=== PATIENT | male | born 1950 | race Caucasian/White ===

== ENCOUNTER 2016-12-28 17:53 | Inpatient (IN) | payer MEDICARE ==
[~2016-12-28] VITALS: Ht 172.7 cm; Wt 125.0 kg
[~2016-12-28 17:53] MED LIST: ASPI81TA11 OR; DOXY150C OR; HYDR-2768 PO; LISI-360 PO; METF500 PO; METO50TA PO; ROSU40 PO
[2016-12-28 18:00] VITALS: BP 128/63; PULSE 94; RESP 16; TEMP 99.9; O2SAT 98
[2016-12-28 18:27] VITALS: RESP 16; O2SAT 98
[2016-12-28] MEDS ORDERED: SODIUM CHLORIDE 0.9% FLUSH 5 ML FLUSH IVF PRN (18:30)
[2016-12-28] MEDS ORDERED: SODIUM CHLOR 0.9% 1000 ML INJ 1,000 ML IV ONE (18:30)
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
[2016-12-28] MEDS ORDERED: ROSU5 PO (18:39)
[2016-12-28] MEDS ORDERED: HYDR25TA5 PO (18:39)
[2016-12-28] MEDS ORDERED: METF1000 PO (18:39)
[2016-12-28] MEDS ORDERED: METO50TA PO (18:39)
[2016-12-28] MEDS ORDERED: DOXY100C PO (18:39)
[2016-12-28] MEDS ORDERED: ASPI325T PO (18:39)
[2016-12-28] MEDS ORDERED: VANCOMYCIN INJ 1,750 MG in SODIUM CHLORID 0.9% 500 ML INJ 500 ML IV STA (18:47)
[2016-12-28] MEDS ORDERED: CEFEPIME INJ 2,000 MG in SODIUM CHLORIDE 0.9% INJ 100 ML IV STA (18:47)
[2016-12-28 18:55] LABS: AUTOMATED NEUTROPHIL # 10.4 TH/MM3 (1.8-7.7); BASOPHIL # 0.1 TH/MM3 (0-0.2); BASOPHIL % 0.7 % (0.0-2.0); HEMATOCRIT 47.5 % (39.0-51.0); HEMO FLAGS DIFF FINAL; LYMPH % 11.5 % (9.0-44.0); LYMPHOCYTE # 1.5 TH/MM3 (1.0-4.8); MEAN CELL VOLUME 81.6 FL (80.0-100.0); MEAN CORPUSCULAR HEMOGLOBIN 26.8 PG (27.0-34.0); MEAN CORPUSCULAR HGB CONC 32.8 % (32.0-36.0); MONO % 7.6 % (0.0-8.0); NEUT % 80.2 % (16.0-70.0); PLATELET COUNT 256 TH/MM3 (150-450); RED BLOOD COUNT 5.82 MIL/MM3 (4.50-5.90); RED CELL DISTRIBUTION WIDTH 15.3 % (11.6-17.2); WHITE BLOOD COUNT 12.9 TH/MM3 (4.0-11.0)
[2016-12-28 19:00] VITALS: BP 109/58; PULSE 107; RESP 18; TEMP 100.5; O2SAT 97
[2016-12-28 19:04] LABS: APTT (PATIENT) 29.6 SEC (24.3-30.1); INTERNATIONAL NORMALIZED RATIO 1.1 RATIO; PROTHROMBIN TIME - PATIENT 12.2 SEC (9.8-11.6)
--- NOTE | 2016-12-28 19:20 | RADRPT ---
EXAM DATE/TIME: 12/28/2016 18:54 [facility] COMPARISON: No previous studies available for comparison. INDICATIONS : Fever, shortness of breath, and generalized weakness. MEDICAL HISTORY : None SURGICAL HISTORY : CABG. Pacemaker. Aortic valve replacement. ENCOUNTER: Initial ACUITY: 2 days PAIN SCORE: 0/10 LOCATION: chest FINDINGS: A single view of the chest demonstrates cardiomegaly and left basilar scarring. Previous CABG. Left-s ided pacemaker with intact leads. DAIRY TECHNICIAN shunt on the right. Osseous structures are intact. CONCLUSION: Cardiomegaly and previous CABG. Left basilar scarring.. Juan Howell MD on December 28, 2016 at 19:18 Board Certified Radiologist. This report was verified electronically.
[2016-12-28 19:21] LABS: ALT (GPT) 27 U/L (12-78); ANION GAP 14 MEQ/L (5-15); AST (GOT) 27 U/L (15-37); BICARBONATE 23.4 MEQ/L (21.0-32.0); BLOOD UREA NITROGEN 17 MG/DL (7-18); CHLORIDE 97 MEQ/L (98-107); GLOMERULAR FILTRATION RATE 66 ML/MIN (>89); POTASSIUM 3.2 MEQ/L (3.5-5.1); SODIUM (NA) 134 MEQ/L (136-145)
[2016-12-28 19:34] LABS: ALKALINE PHOSPHATASE 87 U/L (45-117); TOTAL BILIRUBIN ADULT 0.4 MG/DL (0.2-1.0)
[2016-12-28 19:35] LABS: CREATINE KINASE 62 U/L (39-308)
--- NOTE | 2016-12-28 19:50 | RADRPT ---
EXAM DATE/TIME: 12/28/2016 19:28 [facility] COMPARISON: CT BRAIN W/O CONTRAST, November 12, 2012, 17:36. INDICATIONS : General weakness with fever. RADIATION DOSE: 43.51 CTDIvol (mGy) MEDICAL HISTORY : Hypertension. Congestive heart failure. Cardiovascular diseaseSeizure. Brain injury. DVT. SURGICAL HISTORY : Splenectomy. Umbilical hernia repair.Pacemaker.AV Shunt. ENCOUNTER: Initial ACUITY: 2 days PAIN SCALE: 0/10 LOCATION: cranial TECHNIQUE: Multiple contiguous axial images were obtained of the head. Using automated exposure control and adj ustment of the mA and/or kV according to patient size, radiation dose was kept as low as reasonably a chievable to obtain optimal diagnostic quality images. FINDINGS: CEREBRUM: Bifrontal and right occipital encephalomalacia again seen. Right parietal ventriculostomy catheter is unchanged. Ventricles are mildly prominent. No evidence of midline shift, mass lesion, hemorrhage o r acute infarction. No extra-axial fluid collections are seen. POSTERIOR FOSSA: The cerebellum and brainstem are intact. The 4th ventricle is midline. The cerebellopontine angle i s unremarkable. EXTRACRANIAL: The visualized portion of the orbits is intact. SKULL: Previous frontal craniotomies.. CONCLUSION: Bifrontal and right occipital encephalomalacia. Ventricles are mildly prominent. Right parietal ventr iculostomy catheter unchanged. Juan Howell MD on December 28, 2016 at 19:46 Board Certified Radiologist. This report was verified electronically.
[2016-12-28] MEDS ORDERED: POTASSIUM CHLOR 20 MEQ PREMIX 100 ML IV ONE (20:30)
[2016-12-28] MEDS ORDERED: DOXYCYCLINE HYCLATE 100 MG CAP PO ONE (20:30)
--- NOTE | 2016-12-28 20:33 | EKG ---
Date Performed: 12/28/2016 Time Performed: 18:08:51 PTAGE: 66 years EKG: ELECTRONIC VENTRICULAR PACEMAKER ABNORMAL RHYTHM ECG PREVIOUS TRACING : 01/10/2012 04.51 Compared to previous tracing, ventricular paced rhythm has replaced supraventricular tachycardia. DOCTOR: Nnamdi Goodwin Interpretating Date/Time 12/28/2016 20:33:06
[2016-12-28] MEDS ORDERED: ACETAMINOPHEN/HYDROcodone 325 MG/5 MG TAB PO PRN (20:45)
[2016-12-28] MEDS ORDERED: BISACODYL 10 MG SUPP PR PRN (20:45)
[2016-12-28] MEDS ORDERED: Vancomycin Consult Pharmacy 1 EA OTHER SCH (20:45)
[2016-12-28] MEDS ORDERED: ONDANSETRON HCL 4 MG/2 ML VIAL IVP PRN (20:45)
[2016-12-28] MEDS ORDERED: MORPHINE SULFATE 4 MG/ML INJ IV PRN (20:45)
[2016-12-28] MEDS ORDERED: SODIUM CHLORIDE 0.9% FLUSH 5 ML FLUSH FLUSH PRN (20:45)
--- NOTE | 2016-12-28 20:48 | HHI.HP ---
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 Per , pt had fever of 101 last evening w/ complaints of generalized weakness and non-productive cough. Today, pt had recurrent febrile episode. noted pt to be diaphoretic, ataxic, "walking into rodriguez" and s/p nausea/vomiting x1, at which point she called EMS. On arrival, BP 128/63, HR 94, O2 sat 98% on RA, Temp 100.5. WBC 12.9. K+ 3.2. Lactic Acid 1.7. CXR with cardiomegaly. CT Head bifrontal and right occipital encephalomalacia, ventricles are mildly prominent, right parietal ventriculostomy catheter unchanged. S/p Blood Cultures, Vanc/Cefepime in ER. Pt follows w/ Dr. Singh as outpatient, Dr. Singh consulted by ER physician, recommended CSF culture from Shunt. Follows w/ Dr. Blancas for Cardiology. Review of Systems Except as stated in HPI: all other systems reviewed are Neg ROS: 14 point review of systems otherwise negative. 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 No h/o DM or CAD Social History PAST SOCIAL HISTORY: Negative for alcohol, tobacco or drugs. Physical Exam Vital Signs Vital Signs Date Time Temp Pulse Resp B/P Pulse Ox O2 Delivery O2 Flow Rate FiO2 12/28/16 19:00 100.5 107 18 109/58 97 Nasal Cannula 2 12/28/16 18:27 16 98 Room Air 12/28/16 18:18 94 16 98 Room Air 12/28/16 18:00 99.9 94 16 128/63 98 Physical Exam PE: GENERAL: Pleasant middle-aged white male in no acute distress. at bedside. Facial flushing. HEENT: PERRLA, EOMI. No scleral icterus or conjunctival pallor. No lid lag or facial droop. CARDIOVASCULAR: Regular rate and rhythm. No obvious murmurs to auscultation. No chest tenderness to palpation. RESPIRATORY: No obvious rhonchi or wheezing. Clear to auscultation. Breath sounds equal bilaterally. GASTROINTESTINAL: Abdomen soft, non-tender, nondistended. BS normal. MUSCULOSKELETAL: Extremities without clubbing, cyanosis, or edema. No obvious deformities. NEUROLOGICAL: Awake, alert and oriented x4. No focal neurologic deficits. Moving both upper and lower extremities spontaneously. Laboratory Laboratory Tests Test 12/28/16 18:30 White Blood Count 12.9 Red Blood Count 5.82 Hemoglobin 15.6 Hematocrit 47.5 Mean Corpuscular Volume 81.6 Mean Corpuscular Hemoglobin 26.8 Mean Corpuscular Hemoglobin 32.8 Concent Red Cell Distribution Width 15.3 Platelet Count 256 Mean Platelet Volume 9.4 Neutrophils (%) (Auto) 80.2 Lymphocytes (%) (Auto) 11.5 Monocytes (%) (Auto) 7.6 Eosinophils (%) (Auto) 0.0 Basophils (%) (Auto) 0.7 Neutrophils # (Auto) 10.4 Lymphocytes # (Auto) 1.5 Monocytes # (Auto) 1.0 Eosinophils # (Auto) 0.0 Basophils # (Auto) 0.1 CBC Comment DIFF FINAL Differential Comment Prothrombin Time 12.2 Prothromb Time International 1.1 Ratio Activated Partial 29.6 Thromboplast Time Sodium Level 134 Potassium Level 3.2 Chloride Level 97 Carbon Dioxide Level 23.4 Anion Gap 14 Blood Urea Nitrogen 17 Creatinine 1.11 Estimat Glomerular Filtration 66 Rate Random Glucose 200 Lactic Acid Level 1.7 Calcium Level 8.2 Total Bilirubin 0.4 Aspartate Amino Transf 27 (AST/SGOT) Alanine Aminotransferase 27 (ALT/SGPT) Alkaline Phosphatase 87 Total Creatine Kinase 62 Troponin I 0.03 Total Protein 7.1 Albumin 3.4 Date/Time Procedure Status Source Growth 12/28/16 18:35 Influenza Types A,B Antigen ([facility]) - Final Complete Nasal Washing NEGATIVE FOR FLU A AND B ANTIGEN.... 12/28/16 18:30 Aerobic Blood Culture Received Blood Peripheral Pending 12/28/16 18:30 Anaerobic Blood Culture Received Blood Peripheral Pending Result Diagram: 12/28/16182912/28/160 Assessment and Plan Problem List: (1) Sepsis ICD Code: A41.9 Status: Acute (2) Ataxia ICD Code: R27.0 Status: Acute (3) Hypokalemia ICD Code: E87.6 Status: Acute (4) Meningioma ICD Code: D32.9 Status: Acute (5) DM (diabetes mellitus) ICD Code: E11.9 Status: Acute Assessment and Plan A/P: 1. Sepsis: HR 107, Temp 100.5, WBC 12.9, Source-unclear, ?JIGGER CROWN POUNCING MACHINE OPERATOR Shunt Infection ? UTI. Blood Cultures, Vanc/Cefepime in ER. U/a pending. Follow up cultures, continue IV Abx, IVF for hydration. CXR w/ no acute findings, images reviewed by me. 2. 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 Follows w/ Dr. Singh as outpatient, consulted by ER physician, recommendation for CSF culture/ gram stain from Shunt, orders placed by ER physician. Follow up cultures. Continue broad spectrum IV Abx. Neuro checks. 3. Ataxia: CT Head w/ bifrontal and right occipital encephalomalacia, ventricles mildly prominent, right parietal ventriculostomy catheter unchanged, images reviewed by me. Possibly related to JIGGER CROWN POUNCING MACHINE OPERATOR Shunt infection. Neuro checks as above. Dr. Singh to evaluate. PT for eval/tx. 4. Hypokalemia: K+ 3.2, replace and recheck labs in am. 5. DM: Sliding scale w/ Accu-Checks. Hold Metformin for now in light of Sepsis. 6. DVT Prophylaxis: SCD/Teds. 7. Social work for d/c planning as needed. 8. Case discussed w/ ER physician at length. Physician Certification 2 Midnight Certification Type: Admission for Inpatient Services Order for Inpatient Services The services are ordered in accordance with Medicare regulations or non- Medicare payer requirements, as applicable. In the case of services not specified as inpatient-only, they are appropriately provided as inpatient services in accordance with the 2-midnight benchmark. Estimated LOS (days): 2 days is the estimated time the patient will need to remain in the hospital, assuming treatment plan goals are met and no additional complications. Post-Hospital Plan: Not yet determined Problem Qualifiers (1) Sepsis: Qualified Code: A41.9 - Sepsis, due to unspecified organism Dulce Hermosillo MD Dec 28, 2016 20:48
[2016-12-28] MEDS: DOXYCYCLINE HYCLATE 100 MG CAP PO SCH (21:00)
[2016-12-28] MEDS ORDERED: GLUCAGON 1 MG/ML VIAL OTHER PRN (21:00)
[2016-12-28] MEDS ORDERED: DEXTROSE 50% IN WATER 50 ML VIAL(D50) IV PUSH PRN (21:00)
[2016-12-28] MEDS ORDERED: POTASSIUM CHLORIDE 20 MEQ CONTROLLED RELEASE TAB PO ONE (21:15)
[2016-12-28 21:16] LABS: BLOOD, URINE SMALL (NEG); GLUCOSE,URINE NEG (NEG); KETONE, URINE 40 mg/dL (NEG); MUCUS URINE FEW /lpf (OCC); NITRITE,URINE NEG (NEG); SQUAMOUS EPITHELIAL CELL URINE <1 /hpf (0-5); URINE COLOR YELLOW (YELLW/STRAW)
[2016-12-28 21:17] LABS: COMMENT (UR) CATH-CULT NOT IND; CULTURE IF INDICATED CATH CULTURE NOT IND
[2016-12-28] MEDS: INSULIN ASPART SUPPLEMENTAL SCALE SQ SCH (21:29)
[2016-12-28] MEDS: SODIUM CHLORIDE 0.9% FLUSH 5 ML FLUSH FLUSH SCH (21:30)
[2016-12-28 22:00] VITALS: BP 133/74; PULSE 99; RESP 18; O2SAT 96
[2016-12-28] MEDS ORDERED: ATORVASTATIN 10 MG TAB PO SCH (22:00)
[2016-12-28] MEDS: SODIUM CHLOR 0.9% 1000 ML INJ 1,000 ML IV SCH (22:08)
[2016-12-28] MEDS: METOPROLOL TARTRATE 50 MG TAB PO SCH (23:28)
[2016-12-28 23:30] VITALS: BP 128/83; PULSE 101; RESP 18; O2SAT 96
[2016-12-29] VITALS (9 sets, daily range): BP systolic 113–167; BP diastolic 74–87; PULSE 65–110; RESP 18–21; TEMP 97.1–101.7; O2SAT 95–97
[2016-12-29] MEDS: ACETAMINOPHEN 325 MG TAB PO PRN (03:07)
[2016-12-29] MEDS: SODIUM CHLOR 0.9% 1000 ML INJ 1,000 ML IV SCH (05:09)
[2016-12-29] MEDS: INSULIN ASPART SUPPLEMENTAL SCALE SQ SCH ×4 (05:14→21:24)
--- NOTE | 2016-12-29 06:46 | PD.CONS ---
HPI Service Neurosurgery Consult Requested By [facility] Primary Care Physician Marvin Montero MD History of Present Illness This is a 66-year-old male with history of Meningioma, Hydrocephalus s/p RANGE RIDER Shunt, HTN and DM who was brought to [facility] department with ataxia and generalized weakness x1 day. Apparently he had fever of 101 last evening with generalized weakness and non-productive cough. He was diaphoretic and ataxic, "walking into rodriguez", No LOC. No seizure activity noted. No tongue bitting. No in continence of stool or urine. Reports nausea/vomiting x1, she called EMS. On arrival, Temp was 100.5. CT Head bifrontal and right occipital encephalomalacia, ventricles are mildly prominent, right parietal ventriculostomy catheter unchanged. Neurosurgical consultation was requested Review of Systems Constitutional: DENIES: Diaphoretic episodes, Fatigue, Fever, Weight gain, Weight loss, Chills, Dizziness, Change in appetite, Night Sweats Endocrine: DENIES: Abnorml menstrual pattern, Heat/cold intolerance, Polydipsia , Polyuria, Polyphagia Eyes: DENIES: Blurred vision, Diplopia, Eye inflammation, Eye pain, Vision loss , Photosensitivity, Double Vision Ears, nose, mouth, throat: DENIES: Tinnitus, Hearing loss, Vertigo, Nasal discharge, Oral lesions, Throat pain, Hoarseness, Ear Pain, Running Nose, Epistaxis, Sinus Pain, Toothache, Odynophagia Respiratory: DENIES: Apneas, positive Cough, DENIES Snoring, Wheezing, Hemoptysis, Sputum production, Shortness of breath Cardiovascular: DENIES: Chest pain, Palpitations, Syncope, Dyspnea on Exertion , PND, Lower Extremity Edema, Orthopnea, Claudication Gastrointestinal: DENIES: Abdominal pain, Black stools, Bloody stools, Constipation, Diarrhea, Nausea, Vomiting, Difficulty Swallowing, Anorexia Genitourinary: DENIES: Abnormal vaginal bleeding, Dysmenorrhea, Dyspareunia, Sexual dysfunction, Urinary frequency, Urinary incontinence, Urgency, Hematuria , Dysuria, Nocturia, Vaginal discharge Musculoskeletal: DENIES: Joint pain, Muscle aches, Stiffness, Joint Swelling, Back pain, Neck pain Integumentary: DENIES: Abnormal pigmentation, Pruritus, Rash, Nail changes, Breast masses, Breast skin changes, Nipple discharge Hematologic/lymphatic: DENIES: Bruising, Lymphadenopathy Immunologic/allergic: DENIES: Eczema, Urticaria Neurologic: COMPLAINS OF: Headache, DENIES: Abnormal gait, Localized weakness , Paresthesias, Seizures, Speech Problems, Tremor, Poor Balance Psychiatric: DENIES: Anxiety, Confusion, Mood changes, Depression, Hallucinations, Agitation, Suicidal Ideation, Homicidal Ideation, Delusions Past Family Social History Allergies: Coded Allergies: Dilantin (Verified Allergy, Severe, Rash, 06/06/16) Uncoded Allergies: STATIN DRUGS (Adverse Reaction, Severe, 11/12/12) Past Medical History Meningioma, Hydrocephalus HTN Past Surgical History Umbilical Hernia Repair, Splenectomy, Brain Tumor Resection, RANGE RIDER Shunt, Pacemaker Reported Medications Reviewed in EMR Active Ordered Medications Current Medications IV Flush 2 ml 2 ml UNSCH PRN IVF FLUSH AFTER USING IV ACCESS Last administered on 12/28/16 18:28; Start 12/28/16 at 18:30; Stop 12/28/16 at 20:58; Status DC Sodium Chloride 1,000 ml @ 999 mls/hr BOLUS ONCE IV Last administered on 12/28 18:28; Start 12/28/16 at 18:30; Stop 12/28/16 at 19:30; Status DC Vancomycin HCl 1750 mg/Sodium Chloride 517.5 ml @ 257.5 mls/ hr ONCE STAT IV Last administered on 12/28/16 20:48; Start 12/28/16 at 18:47; Stop 12/28/16 at 20:47; Status DC Cefepime HCl/ Sodium Chloride (Maxipime Inj/NS Inj) 100 ml @ 200 mls/hr ONCE STAT IV Last administered on 12/28/16 20:15; Start 12/28/16 at 18:47; Stop at 19:16; Status DC Doxycycline Hyclate 200 mg 200 mg ONCE ONCE PO Last administered on 12/28/16 21:08; Start 12/28/16 at 20:30; Stop 12/28/16 at 20:31; Status DC Potassium Chloride (KCl 20 Meq Premix Inj) 100 ml @ 50 mls/hr BOLUS ONCE IV Last administered on 2/25/17at 22:08; Start 12/28/16 at 20:30; Stop 12/28/16 at 22:29; Status DC Potassium Chloride 40 meq 40 meq ONCE ONCE PO Last administered on 12/28/16 21:29; Start 12/28/16 at 21:15; Stop 12/28/16 at 21:16; Status DC Pharmacy Profile Note 0 ml @ 0 mls/hr UNSCH OTHER ; Start 12/28/16 at 20:45 Cefepime HCl 1000 mg/Sodium Chloride 100 ml @ 200 mls/hr Q12H IV ; Start at 09:00 Sodium Chloride (NS 1000 ml Inj) 1,000 ml @ 100 mls/hr Q10H IV Last administered on 12/29/16 05:09; Start 12/28/16 at 20:33 IV Flush (NS Flush) 2 ml UNSCH PRN FLUSH FLUSH AFTER USING IV ACCESS; Start at 20:45 IV Flush (NS Flush) 2 ml BID FLUSH Last administered on 12/28/16 21:30; Start 12/28/16 at 21:00 Ondansetron HCl (Zofran Inj) 4 mg Q6H PRN IVP NAUSEA OR VOMITING; Start at 20:45 Bisacodyl (Dulcolax Supp) 10 mg DAILY PRN [place] CONSTIPATION; Start 12/28/16 at 20 :45 Acetaminophen (Tylenol) 650 mg Q6H PRN PO FEVER/PAIN SCALE 1 TO 2 Last administered on 12/29/16 03:07; Start 12/28/16 at 20:45 Acetaminophen/ Hydrocodone Bitart ([place] 5-325 Mg) 1 tab Q4H PRN PO PAIN SCALE 3 TO 5; Start 12/28/16 at 20:45 Morphine Sulfate (Morphine Inj) 2 mg Q3H PRN IV Pain 6-10; Start 12/28/16 at 20 :45 Doxycycline Hyclate (Vibramycin) 200 mg HS PO ; Start 12/28/16 at 21:00 Atorvastatin Calcium (Lipitor) 10 mg HS PO ; Start 12/28/16 at 22:00; Stop 12/28 at 23:13; Status DC Dextrose (D50w (Vial) Inj) 25 ml UNSCH PRN IV PUSH HYPOGLYCEMIA-SEE COMMENTS; Start 12/28/16 at 21:00 Glucagon (Glucagon Inj) 1 mg UNSCH PRN OTHER HYPOGLYCEMIA-SEE COMMENTS; Start 12/28/16 at 21:00 Insulin Aspart 1 1 ACHS SLIDING SCALE SQ Last administered on 12/28/16 21:29 ; Start 12/28/16 at 21:00 Vancomycin HCl/ Sodium Chloride (Vancomycin Inj/ NS 500 ml Inj) 522.5 ml @ 250 mls/hr Q18H IV ; Start 12/29/16 at 15:00 Miscellaneous Information SPECIFIC LAB TO BE DRAWN:VANCO TROUGH DATE TO... ONCE ONCE XX ; Start 12/31/16 at 02:45; Stop 12/31/16 at 02:46 Metoprolol Tartrate (Lopressor) 50 mg BID PO Last administered on 12/28/16 23: 28; Start 12/28/16 at 23:15 Family History Noncontributory Social History no tobbacco No EtoH No illiciat drug use Physical Exam Vital Signs Vital Signs Date Time Temp Pulse Resp B/P Pulse Ox O2 Delivery O2 Flow Rate FiO2 12/29/16 05:09 99.8 12/29/16 03:30 101.7 100 20 165/87 97 12/29/16 00:38 97.1 104 21 146/81 95 12/29/16 00:36 108 12/28/16 23:30 101 18 128/83 96 Nasal Cannula 2 12/28/16 22:00 99 18 133/74 96 Nasal Cannula 2 12/28/16 19:00 100.5 107 18 109/58 97 Nasal Cannula 2 12/28/16 18:27 16 98 Room Air 12/28/16 18:18 94 16 98 Room Air 12/28/16 18:00 99.9 94 16 128/63 98 Physical Exam Mr Peñaloza is alert, awake and oriented to time, place and person. Speech is fluent. Cranial nerve examination: pupils to be equal, round and reactive to light. Extra-ocular movements are intact. Facial motor and sensory function are normal and symmetrical. Gross hearing appears intact. Sternocleidomastoid and trapezius muscles are symmetrical. Other cranial nerves are intact. Neck is soft and supple with a good range of motion without pain. Muscle strength is normal in all muscle groups of both upper and lower extremities. Sensory examination is intact to light touch and pin prick in both the upper and lower extremities. Deep tendon reflexes are symmetrical in both upper and lower extremities. There is a bilateral plantar flexion response. Cerebellar examination is unremarkable, without deficits. Laboratory Laboratory Tests Test 12/28/16 12/28/16 18:30 20:10 White Blood Count 12.9 Red Blood Count 5.82 Hemoglobin 15.6 Hematocrit 47.5 Mean Corpuscular Volume 81.6 Mean Corpuscular Hemoglobin 26.8 Mean Corpuscular Hemoglobin 32.8 Concent Red Cell Distribution Width 15.3 Platelet Count 256 Mean Platelet Volume 9.4 Neutrophils (%) (Auto) 80.2 Lymphocytes (%) (Auto) 11.5 Monocytes (%) (Auto) 7.6 Eosinophils (%) (Auto) 0.0 Basophils (%) (Auto) 0.7 Neutrophils # (Auto) 10.4 Lymphocytes # (Auto) 1.5 Monocytes # (Auto) 1.0 Eosinophils # (Auto) 0.0 Basophils # (Auto) 0.1 CBC Comment DIFF FINAL Differential Comment Prothrombin Time 12.2 Prothromb Time International 1.1 Ratio Activated Partial 29.6 Thromboplast Time Sodium Level 134 Potassium Level 3.2 Chloride Level 97 Carbon Dioxide Level 23.4 Anion Gap 14 Blood Urea Nitrogen 17 Creatinine 1.11 Estimat Glomerular Filtration 66 Rate Random Glucose 200 Lactic Acid Level 1.7 Calcium Level 8.2 Total Bilirubin 0.4 Aspartate Amino Transf 27 (AST/SGOT) Alanine Aminotransferase 27 (ALT/SGPT) Alkaline Phosphatase 87 Total Creatine Kinase 62 Troponin I 0.03 Total Protein 7.1 Albumin 3.4 Urine Color YELLOW Urine Turbidity CLEAR Urine pH 6.0 Urine Specific [place] 1.020 Urine Protein 300 Urine Glucose (UA) NEG Urine Ketones 40 Urine Occult Blood SMALL Urine Nitrite NEG Urine Bilirubin NEG Urine Urobilinogen LESS THAN 2.0 Urine Leukocyte Esterase NEG Urine RBC 1 Urine WBC 6 Urine Squamous Epithelial <1 Cells Urine Mucus FEW Microscopic Urinalysis Comment CATH-CULT NOT IND Date/Time Procedure Status Source Growth 12/28/16 18:35 Influenza Types A,B Antigen (NORMAN) - Final Complete Nasal Washing NEGATIVE FOR FLU A AND B ANTIGEN.... 12/28/16 18:30 Aerobic Blood Culture Received Blood Peripheral Pending 12/28/16 18:30 Anaerobic Blood Culture Received Blood Peripheral Pending Result Diagram: 12/28/16 18312/28/16 1830 Imaging Last Impressions Head CT 12/28/16 1847 Signed Impressions: Service Date/Time: Wednesday, December 28, 2016 19:28 - CONCLUSION: Bifrontal and right occipital encephalomalacia. Ventricles are mildly prominent. Right parietal ventriculostomy catheter unchanged. Juan Howell MD Chest X-Ray 12/28/16 1821 Signed Impressions: Service Date/Time: Wednesday, December 28, 2016 18:54 - CONCLUSION: Cardiomegaly and previous CABG. Left basilar scarring.. Juan Howell MD Assessment and Plan Assessment and Plan (1) Sepsis ICD Code: A41.9 Status: Acute (2) Ataxia ICD Code: R27.0 Status: Acute (3) Hypokalemia ICD Code: E87.6 Status: Acute (4) Meningioma ICD Code: D32.9 Status: Acute (5) DM (diabetes mellitus) ICD Code: E11.9 Attending Statement Neuro. I have reviewed his clinical and radiological findings. neuro checks in a serial fashion. Recommend analysis of CSF and cultures Respiratory. pulmonary toilette, nasotracheal suction, and breathing treatments with nebulizers. PT and OT eval Nutrition. Oral diet Hypokalemia: K+ 3.2, replace and recheck labs in am. Renal. monitor closely urine output, BUN and creatinine Meningioma. Resected. Not an issue Diabetes. Accu checks and slidding scale ID Sepsis: HR 107, Temp 100.5, WBC 12.9, Source-unclear, Blood Cultures, Vanc/ Cefepime in ER. U/a pending. Follow up cultures, IV Abx, IV hydration. Protonix for stress ulcer prophylaxis Alejandro reyna and SCD's for DVT prophylaxis De Singh MD Dec 29, 2016 06:46
[2016-12-29 06:49] LABS: AUTOMATED NEUTROPHIL # 7.9 TH/MM3 (1.8-7.7); BASOPHIL # 0.1 TH/MM3 (0-0.2); BASOPHIL % 0.8 % (0.0-2.0); HEMATOCRIT 43.8 % (39.0-51.0); HEMO FLAGS DIFF FINAL; LYMPH % 13.8 % (9.0-44.0); LYMPHOCYTE # 1.4 TH/MM3 (1.0-4.8); MEAN CELL VOLUME 80.3 FL (80.0-100.0); MEAN CORPUSCULAR HEMOGLOBIN 26.9 PG (27.0-34.0); MEAN CORPUSCULAR HGB CONC 33.5 % (32.0-36.0); MONO % 5.9 % (0.0-8.0); NEUT % 79.5 % (16.0-70.0); PLATELET COUNT 237 TH/MM3 (150-450); RED BLOOD COUNT 5.45 MIL/MM3 (4.50-5.90); RED CELL DISTRIBUTION WIDTH 15.1 % (11.6-17.2); WHITE BLOOD COUNT 9.9 TH/MM3 (4.0-11.0)
[2016-12-29 07:04] LABS: ALKALINE PHOSPHATASE 69 U/L (45-117); ALT (GPT) 24 U/L (12-78); ANION GAP 11 MEQ/L (5-15); AST (GOT) 24 U/L (15-37); BICARBONATE 27.3 MEQ/L (21.0-32.0); BLOOD UREA NITROGEN 14 MG/DL (7-18); CHLORIDE 102 MEQ/L (98-107); GLOMERULAR FILTRATION RATE 66 ML/MIN (>89); POTASSIUM 3.4 MEQ/L (3.5-5.1); SODIUM (NA) 140 MEQ/L (136-145); TOTAL BILIRUBIN ADULT 0.3 MG/DL (0.2-1.0)
[2016-12-29] MEDS ORDERED: CEFEPIME INJ 1,000 MG in SODIUM CHLORIDE 0.9% INJ 100 ML IV SCH (09:00)
[2016-12-29] MEDS: METOPROLOL TARTRATE 50 MG TAB PO SCH ×2 (09:00→21:23)
[2016-12-29] MEDS: SODIUM CHLORIDE 0.9% FLUSH 5 ML FLUSH FLUSH SCH ×2 (09:00→21:23)
[2016-12-29] MEDS: POTASSIUM CHLOR 10 MEQ PREMIX 100 ML IV SCH ×3 (12:02→15:11)
--- NOTE | 2016-12-29 12:43 | MB ---
cc: SANTOS ROMERO DATE OF CONSULTATION: 12/29/2016 REASON FOR CONSULTATION: Known to Dr. Blancas. History of aortic valve replacement, fever. HISTORY OF PRESENT ILLNESS The patient is a 66-year-old white male, followed in our office by Dr. Saul Blancas, with a history of aortic valve endocarditis, status post bio-prosthetic aortic valve replacement twice in 2011, history of paroxysmal ventricular tachycardia, pacemaker implant, diabetes, possible coronary artery disease, who presented to the hospital with a two day history of generalized malaise, fever up to 102 degrees, ataxia. He has also noted sweats and cold sensation in his face and upper body. He denies chest pain, shortness of breath, lightheadedness, syncope, near-syncope, palpitations, pedal edema, rashes. Today he feels "100% better". PAST MEDICAL HISTORY: 1. History of possible coronary artery disease with inferior apical myocardial infarction demonstrated by previous nuclear stress test as well as echo. 2. History of brain meningioma, status post resection. 3. Diabetes. 4. Hyperlipidemia. 5. [employer] pacemaker implant 04/20/12. 6. Nonsustained ventricular tachycardia noted on pacemaker checks, treated with beta-guera therapy. 7. History of aortic valve endocarditis, status post bovine pericardial valve replacement in 2011. He underwent redo aortic valve replacement at [facility] a few months later apparently due to recurrent endocarditis. CARDIAC MEDICATIONS AT HOME: 1. Aspirin 325 mg daily. 2. Hydrochlorothiazide 25 mg daily. 3. Metoprolol tartrate 50 mg b.i.d. 4. Crestor 5 mg q.h.s. ALLERGIES Certain statin drugs. Dilantin FAMILY HISTORY Noncontributory. SOCIAL HISTORY The patient denies alcohol or tobacco abuse. REVIEW OF SYSTEMS: As in the history of present illness otherwise negative or noncontributory. He also denies visual changes, unilateral weakness or numbness, abdominal pain, melena, dyspepsia, bright red blood per rectum. PHYSICAL EXAMINATION: On physical examination his blood pressure 130/74 with a pulse of 86, respirations 19, temperature maximum 101.7. In general, he is a well-developed, well-nourished white male in no acute distress. HEENT examination, jugular venous pressure is normal. Carotid pulses are 2+ bilaterally and without bruits. Examination of the chest reveals clear lung molina. Cardiac examination: He has a regular rhythm and rate with a grade 2/6 systolic ejection murmur heard at the base. The S2 heart sound may be mildly diminished. No gallop is audible. On abdominal examination he has a soft, obese, nontender abdomen. Bowel sounds are present. There is no definite hepatosplenomegaly. Examination of extremities reveals no clubbing, cyanosis or edema. Peripheral pulses are normal throughout. There are no peripheral stigmata of endocarditis. LABORATORY DATA: Laboratory data includes WBC 9.9, hemoglobin 14.7, platelets 237, potassium 3.4, BUN 14, creatinine 1.11, INR 1.1. Chest x-ray shows no acute disease. EKG shows ventricular paced rhythm. IMPRESSION Fever, generalized malaise, in this 66-year-old white male with a history of two bio-prosthetic aortic valve replacements in 2011 due to endocarditis, diabetes, hyperlipidemia, pacemaker implant, nonsustained ventricular tachycardia, history of possible coronary disease. Overall his cardiac status appears to be stable. However, I would recommend that recurrent endocarditis of his aortic valve prosthesis be ruled out. He continues to have fevers here in the hospital. Blood cultures so far are negative to date. RECOMMENDATIONS Transesophageal echocardiography in the morning. MD NORBERTO Reese/TAHMINA /11:58 AM /12:35 PM GERA
--- NOTE | 2016-12-29 13:47 | HHI.PR ---
Subjective Remarks Follow up for fevers, weakness. The patient reports feeling "pretty good" today. Denies any pain. Still having fevers, Tmax 101.7 at 3am this morning. He is awake, alert, oriented x4. He states he came to the hospital because he was having fevers, very weak, states he felt like he couldn't walk in a straight line. Denies chest pain or shortness of breath. He was also experiencing nausea/vomiting but this has significantly improved. He was able to tolerate a bagel and coffee this morning. His DELIV[employer] SAL[employer] WORKER shunt was placed in 2011. He also has a history of endocarditis. Objective Vitals Vital Signs Date Time Temp Pulse Resp B/P Pulse Ox O2 Delivery O2 Flow Rate FiO2 12/29/16 12:00 99.8 84 20 113/81 96 12/29/16 08:00 99.1 86 19 130/74 97 12/29/16 05:09 99.8 12/29/16 03:30 101.7 100 20 165/87 97 12/29/16 00:38 97.1 104 21 146/81 95 12/29/16 00:36 108 12/28/16 23:30 101 18 128/83 96 Nasal Cannula 2 12/28/16 22:00 99 18 133/74 96 Nasal Cannula 2 12/28/16 19:00 100.5 107 18 109/58 97 Nasal Cannula 2 12/28/16 18:27 16 98 Room Air 12/28/16 18:18 94 16 98 Room Air 12/28/16 18:00 99.9 94 16 128/63 98 I/O 12/28/16 12/28/16 12/28/16 12/29/16 12/29/16 12/29/16 07:00 15:00 23:00 07:00 15:00 23:00 Intake Total 821 ml 880 ml Output Total 1200 ml 750 ml Balance -379 ml 130 ml Intake Oral 120 ml 880 ml IV Total 701 ml Output Urine Total 1200 ml 750 ml # Bowel Movements 1 1 Result Diagram: 12/29/16 0550 12/29/16 0550 Imaging Last Impressions Head CT 12/28/16 1530 Signed Impressions: Service Date/Time: Wednesday, December 28, 2016 19:28 - CONCLUSION: Bifrontal and right occipital encephalomalacia. Ventricles are mildly prominent. Right parietal ventriculostomy catheter unchanged. Juan Howell MD Chest X-Ray 12/28/161820 Signed Impressions: Service Date/Time: Wednesday, December 28, 2016 18:54 - CONCLUSION: Cardiomegaly and previous CABG. Left basilar scarring.. Juan Howell MD Objective Remarks GENERAL: Well-developed, well-nourished obese male patient in [facility]. SKIN: Warm and dry. HEAD: Atraumatic. Normocephalic. EYES: Pupils equal and round. No scleral icterus. No injection or drainage. ENT: No nasal bleeding or discharge. Mucous membranes pink and moist. NECK: Trachea midline. CARDIOVASCULAR: Regular rate and rhythm. +systolic murmur noted. RESPIRATORY: No accessory muscle use. Clear to auscultation. Breath sounds equal bilaterally. GASTROINTESTINAL: Abdomen soft, non-tender, nondistended. Normoactive bowel sounds x4. Umbilical hernia. MUSCULOSKELETAL: Extremities without clubbing, cyanosis, or edema. No obvious deformities. NEUROLOGICAL: Awake and alert. No obvious cranial nerve deficits. Motor grossly within normal limits. Normal speech. PSYCHIATRIC: Appropriate mood and affect; insight and judgment normal. Medications and IVs Current Medications Medications (Trade) Dose Ordered Sig/Azar Route Start Time Stop Time Status Last Admin Pharmacy Profile Note 0 ml @ 0 mls/hr UNSCH OTHER 12/28/16 20:45 (NS 1000 ml Inj) 1,000 ml @ 100 mls/hr Q10H IV 12/28/16 20:33 12/29/16 05:09 (NS Flush) 2 ml UNSCH PRN FLUSH 12/28/16 20:45 (NS Flush) 2 ml BID FLUSH 12/28/16 21:00 12/28/16 21:30 (Zofran Inj) 4 mg Q6H PRN IVP 12/28/16 20:45 (Dulcolax Supp) 10 mg DAILY PRN [place] 12/28/16 20:45 (Tylenol) 650 mg Q6H PRN PO 12/28/16 20:45 12/29/16 03:07 ([place] 5-325 Mg) 1 tab Q4H PRN PO 12/28/16 20:45 (Morphine Inj) 2 mg Q3H PRN IV 12/28/16 20:45 (Vibramycin) 200 mg HS PO 12/28/16 21:00 (D50w (Vial) Inj) 25 ml UNSCH PRN IV PUSH 12/28/16 21:00 Glucagon 1 mg 1 mg UNSCH PRN OTHER 12/28/16 21:00 (Vancomycin Inj/ NS 500 ml Inj) 522.5 ml @ 250 mls/hr Q18H IV 12/29/16 15:00 Miscellaneous Information SPECIFIC LAB TO BE DRAWN:VANCO TROUGH DATE TO... ONCE ONCE XX 12/31/16 02:45 12/31/16 02:46 Metoprolol Tartrate 50 mg 50 mg BID PO 12/28/16 23:15 12/29/16 09:00 Potassium Chloride 100 ml @ 100 mls/hr Q1H IV 12/29/16 13:00 12/29/16 15:59 12/29/16 12:02 (Maxipime Inj/NS Inj) 100 ml @ 200 mls/hr Q8H IV 12/29/16 17:00 Urinary Catheter: Yes Assessment to: Remove Date of Insertion: Dec 28, 2016 Date of Removal: Dec 29, 2016 A/P Problem List: (1) Sepsis ICD Code: A41.9 Status: Acute (2) Ataxia ICD Code: R27.0 Status: Acute (3) Hypokalemia ICD Code: E87.6 Status: Acute (4) Meningioma ICD Code: D32.9 Status: Acute (5) DM (diabetes mellitus) ICD Code: E11.9 Status: Acute Assessment and Plan 66-year-old male with a PMH of Meningioma, Hydrocephalus s/p [employer] Shunt, AVR, HTN and DM who was brought to the ER by EMS secondary to ataxia and generalized weakness x1 day. Per , pt had fever of 101 last evening w/ complaints of generalized weakness and non-productive cough. Today, pt had recurrent febrile episode. noted pt to be diaphoretic, ataxic, "walking into rodriguez" and s/p nausea/vomiting x1, at which point she called EMS. Sepsis: HR 107, Temp 100.5, WBC 12.9, Source-unclear, ?[employer] Shunt Infection ? UTI. Possible recurrence of Endocarditis. U/a negative. CXR w/ no acute findings , images reviewed by me. Check Blood Cultures. Continue IV Vanc/Cefepime. Follow up cultures. IVF for hydration. Consult infectious disease. Meningioma: s/p resection w/ Hydrocephalus s/p [employer] WORKER Shunt. Follows w/ Dr. Singh as outpatient, consulted by ER physician, recommendation for CSF culture/gram stain from Shunt, orders placed by ER physician. Follow up cultures. Continue broad spectrum IV Abx. Neuro checks. Ataxia: CT Head w/ bifrontal and right occipital encephalomalacia, ventricles mildly prominent, right parietal ventriculostomy catheter unchanged, images reviewed by me. Possibly related to DEL[employer]ER Shunt infection. Neuro checks. Dr. Singh to evaluate. PT for eval/tx. Hx of Endocarditis: with 2 bio-prosthetic aortic valve replacements in 2011 due to endocarditis. Currently on Doxycycline, will continue. Consulted cardiology, plan for RAMBO tomorrow 12/30. Infectious disease consulted. CAD/HTN/HLD: chronic, continue patient's metoprolol, statin. Hold ASA for possible procedure. Hypokalemia: K+ 3.2, replaced, repeat K 3.4, given additional replacement. Repeat labs in the am. DM: Sliding scale w/ Accu-Checks. Hold Metformin for now in light of Sepsis. DVT Prophylaxis: SCD/Teds. Written by Teri Boggs, acting as scribe for Dr. Baltazar on 12/29/16 at 13:43. Attending Statement The documentation accurately reflects the work performed [id number] by me, Dr. Baltazar on 12/29/16 at 13:43. Problem Qualifiers (1) Sepsis: Qualified Code: A41.9 - Sepsis, due to unspecified organism Teri Boggs PA-C Dec 29, 2016 13:47 Andrzej Baltazar MD Dec 30, 2016 02:30
[2016-12-29] MEDS: VANCOMYCIN INJ 2,250 MG in SODIUM CHLORID 0.9% 500 ML INJ 500 ML IV SCH (15:11)
--- NOTE | 2016-12-29 16:27 | PD.CONS ---
History of Present Illness Service Infectious disease Consult Requested By Dr Sadie Baltazar Reason for Consult Evaluate patient for possible shunt infection Primary Care Physician Marvin Montero MD Diagnoses: History of Present Illness Patient seen and examined. Records reviewed. Patient is a 66-year-old male presented to the hospital with multiple complaints. He apparently has not been feeling well for about 2 days prior to admission. He felt very tired, and easily fatigued even with just short walks. He had some dyspnea on exertion. He was also getting hot and cold sweats. His symptoms continued and he also developed some nonproductive cough, but denies any kind of chest pain. He did not have any sore throat. He also had several episodes of nausea and vomiting, but denies any abdominal pain, urinary complaints, or any diarrhea. He has not had any back pain. Denies any headache. His temperature had gone up to 101 at home. Patient was brought into the hospital for further evaluation and treatment. Patient currently feels a little bit better. Patient has had fevers. His WBC was up to 12,000. Chest x-ray did not show any new infiltrate except for some scarring in the left base. His history significant for history of MSSA aortic valve endocarditis. He underwent aortic valve replacement in January 2012, readmitted in March 2012, and was found to have perivalvular I urinate regurgitation. He was transferred to [facility] and underwent a redo aortic valve replacement. is not aware all any positive blood cultures over there, and patient was discharged apparently on some oral antibiotics, after which she was placed on doxycycline 200 mg daily for chronic suppression and 1 it was instructed that the patient will stay on this antibiotics for life. 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 During his hospitalization for second redo aVR he had a pacemaker placement. It was last checked about a week ago. Patient also had a history of meningioma, underwent resection, and subsequently had radiation therapy for recurrent meningioma and apparently the size of the tumor has been stable. He had CIRCUIT TESTER shunt placement after that surgery back in 2011. Infectious disease consultation has been requested to evaluate the patient for sepsis, and possible shunt infection. Review of Systems Constitutional: COMPLAINS OF: Fatigue, Fever, Chills Eyes: DENIES: Eye pain Ears, nose, mouth, throat: DENIES: Oral lesions, Throat pain, Ear Pain, Running Nose, Sinus Pain, Toothache Respiratory: COMPLAINS OF: Cough, Shortness of breath, DENIES: Hemoptysis, Sputum production Cardiovascular: COMPLAINS OF: Dyspnea on Exertion, DENIES: Chest pain, Palpitations Gastrointestinal: COMPLAINS OF: Nausea, Vomiting, Anorexia, DENIES: Abdominal pain, Diarrhea, Difficulty Swallowing Genitourinary: DENIES: Hematuria, Dysuria Musculoskeletal: COMPLAINS OF: Muscle aches, DENIES: Joint pain, Joint Swelling Integumentary: DENIES: Pruritus, Rash Immunologic/allergic: DENIES: Urticaria Neurologic: DENIES: Headache, Localized weakness Psychiatric: COMPLAINS OF: Confusion, DENIES: Hallucinations, Agitation Past Family Social History Allergies: Coded Allergies: Dilantin (Verified Allergy, Severe, Rash, 06/06/16) Uncoded Allergies: STATIN DRUGS (Adverse Reaction, Severe, 11/12/12) Past Medical History CAD Meningioma, had resection 10/2011 Diabetes Hyperlipidemia Previous history of nonsustained ventricular tachycardia Aortic valve endocarditis with MSSA in 2011 Past Surgical History S/P AVR, January 2012, redo-AVR March 2012, porcine AVR Pacemaker April 2012, ?complete heart block October 2011 resection of the meningioma November 2011 CIRCUIT TESTER shunt placement, followed by replacement of bone flap with cranioplasty Splenectomy Umbilical hernia repair Active Ordered Medications Morphine Zofran Insulin Lopressor Cefepime Doxycycline Vancomycin Tylenol Tyler Dulcolax Social History No smoking Alcohol abuse No illicit drug use Physical Exam Vital Signs Vital Signs Date Time Temp Pulse Resp B/P Pulse Ox O2 Delivery O2 Flow Rate FiO2 12/29/16 12:00 99.8 84 20 113/81 96 12/29/16 08:00 99.1 86 19 130/74 97 12/29/16 05:09 99.8 12/29/16 03:30 101.7 100 20 165/87 97 12/29/16 00:38 97.1 104 21 146/81 95 12/29/16 00:36 108 12/28/16 23:30 101 18 128/83 96 Nasal Cannula 2 12/28/16 22:00 99 18 133/74 96 Nasal Cannula 2 12/28/16 19:00 100.5 107 18 109/58 97 Nasal Cannula 2 12/28/16 18:27 16 98 Room Air 12/28/16 18:18 94 16 98 Room Air 12/28/16 18:00 99.9 94 16 128/63 98 Physical Exam GENERAL: This is an obese, well-developed male, awake and alert, looks acute ill appearing, has flushed face, in no apparent distress. SKIN: Warm skin, moist, no generalized rash, no ecchymoses, no embolic lesions. HEAD: CIRCUIT TESTER shunt site on the right side of the head with no tenderness or redness EYES: [place] conjunctivae, no petechia or hemorrhage. Pupils equal round and reactive. Extraocular motions intact. No scleral icterus. Has mild conjunctival injection on the left side. No drainage. ENT: Nose without bleeding, or purulent drainage. Moist oral mucosa. Throat without erythema, or exudate. Uvula midline. Airway patent. NECK: Trachea midline. No JVD or lymphadenopathy. Supple, nontender, no meningeal signs. CARDIOVASCULAR: Regular rate and rhythm , has murmur heard best at base, no rub. healed sternotomy incision. Pacer in L upper chest with no evidence of infection RESPIRATORY: Clear to auscultation. Breath sounds equal bilaterally. No wheezes , rales, or rhonchi. Decreased BS at the bases GASTROINTESTINAL: Abdomen obese, soft, non-tender, nondistended. Bowel sounds are present and normoactive. There is a reducible umbilical hernia. No hepato- splenomegaly, or palpable masses. No guarding. No rebound. Multiple scars in the abdomen compatible with his surgical history. MUSCULOSKELETAL: Extremities without clubbing, cyanosis, or edema. No joint tenderness, effusion, or edema noted. No calf tenderness. Negative Homans sign bilaterally. No peripheral embolic lesions noted. NEUROLOGICAL: Awake and alert. Cranial nerves II through XII intact. Motor and sensory grossly within normal limits. Five out of 5 muscle strength in all muscle groups. Normal speech. PSYCH: Normal affect, calm and cooperative LINE: PIV with no evidence of infection Laboratory Laboratory Tests Test 12/28/16 12/28/16 12/29/16 18:30 20:10 05:50 White Blood Count 12.9 9.9 Red Blood Count 5.82 5.45 Hemoglobin 15.6 14.7 Hematocrit 47.5 43.8 Mean Corpuscular Volume 81.6 80.3 Mean Corpuscular Hemoglobin 26.8 26.9 Mean Corpuscular Hemoglobin 32.8 33.5 Concent Red Cell Distribution Width 15.3 15.1 Platelet Count 256 237 Mean Platelet Volume 9.4 9.1 Neutrophils (%) (Auto) 80.2 79.5 Lymphocytes (%) (Auto) 11.5 13.8 Monocytes (%) (Auto) 7.6 5.9 Eosinophils (%) (Auto) 0.0 0.0 Basophils (%) (Auto) 0.7 0.8 Neutrophils # (Auto) 10.4 7.9 Lymphocytes # (Auto) 1.5 1.4 Monocytes # (Auto) 1.0 0.6 Eosinophils # (Auto) 0.0 0.0 Basophils # (Auto) 0.1 0.1 CBC Comment DIFF FINAL DIFF FINAL Differential Comment Prothrombin Time 12.2 Prothromb Time International 1.1 Ratio Activated Partial 29.6 Thromboplast Time Sodium Level 134 140 Potassium Level 3.2 3.4 Chloride Level 97 102 Carbon Dioxide Level 23.4 27.3 Anion Gap 14 11 Blood Urea Nitrogen 17 14 Creatinine 1.11 1.11 Estimat Glomerular Filtration 66 66 Rate Random Glucose 200 138 Lactic Acid Level 1.7 Calcium Level 8.2 8.1 Total Bilirubin 0.4 0.3 Aspartate Amino Transf 27 24 (AST/SGOT) Alanine Aminotransferase 27 24 (ALT/SGPT) Alkaline Phosphatase 87 69 Total Creatine Kinase 62 Troponin I 0.03 Total Protein 7.1 6.3 Albumin 3.4 2.8 Urine Color YELLOW Urine Turbidity CLEAR Urine pH 6.0 Urine Specific [place] 1.020 Urine Protein 300 Urine Glucose (UA) NEG Urine Ketones 40 Urine Occult Blood SMALL Urine Nitrite NEG Urine Bilirubin NEG Urine Urobilinogen LESS THAN 2.0 Urine Leukocyte Esterase NEG Urine RBC 1 Urine WBC 6 Urine Squamous Epithelial <1 Cells Urine Mucus FEW Microscopic Urinalysis Comment CATH-CULT NOT IND Date/Time Procedure Status Source Growth 12/28/16 18:35 Influenza Types A,B Antigen ([facility]) - Final Complete Nasal Washing NEGATIVE FOR FLU A AND B ANTIGEN.... 12/28/16 18:30 Aerobic Blood Culture - Preliminary Resulted Blood Peripheral NO GROWTH IN 1 DAY 12/28/16 18:30 Anaerobic Blood Culture - Preliminary Resulted Blood Peripheral NO GROWTH IN 1 DAY Result Diagram: 12/29/16 0550 12/29/16 0550 Imaging RADIOLOGY STUDIES/FILMS REVIEWED Head CT 12/28/16 6189 Signed Impressions: Service Date/Time: Wednesday, December 28, 2016 19:28 - CONCLUSION: Bifrontal and right occipital encephalomalacia. Ventricles are mildly prominent. Right parietal ventriculostomy catheter unchanged. Juan Howell MD Chest X-Ray 12/28/16 1821 Signed Impressions: Service Date/Time: Friday, December 28, 2016 18:54 - CONCLUSION: Cardiomegaly and previous CABG. Left basilar scarring.. 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
[2016-12-29] MEDS ORDERED: CEFEPIME INJ 2,000 MG in SODIUM CHLORIDE 0.9% INJ 100 ML IV SCH (17:00)
[2016-12-29 17:38] LABS: AMYLASE 26 U/L (25-115)
--- NOTE | 2016-12-29 19:21 | PD.OP ---
Operative Report Date of Surgery: Dec 29, 2016 Preoperative Diagnosis: Sepsis Postoperative Diagnosis: Sepsis Procedure: Shunt puncture Anesthesia: LAUREN Surgeon: De Singh Fabrication Welder(s): LAUREN Operation and Findings: presented with fevers of unknown origin. The medical doctors suspected a shunt infection and requested the shunt puncture. The skin over the shunt reservoir was prepped and draped in the standard fashion. Using a 23-gauge needle the reservoir was accessed and aspiration was carefully initiated with a small syringe. No cerebrospinal fluid could be obtained. The needle was withdrawn. The patient tolerated the procedure well. There were no complications De Singh MD Dec 29, 2016 19:21
[2016-12-29] MEDS: CEFEPIME INJ 2,000 MG in SODIUM CHLORIDE 0.9% INJ 100 ML IV SCH (21:23)
[2016-12-29] MEDS: DOXYCYCLINE HYCLATE 100 MG CAP PO SCH (21:23)
[2016-12-29] MEDS: SODIUM CHLORID 0.9% 500 ML IV SCH (22:45)
[2016-12-30] VITALS: BP 178/89; PULSE 108; RESP 18; TEMP 100; O2SAT 92
[2016-12-30 04:00] VITALS: BP 136/84; PULSE 92; RESP 19; TEMP 100; O2SAT 93
[2016-12-30] MEDS: CEFEPIME INJ 2,000 MG in SODIUM CHLORIDE 0.9% INJ 100 ML IV SCH ×3 (05:24→20:17)
[2016-12-30 05:26] LABS: AUTOMATED NEUTROPHIL # 5.6 TH/MM3 (1.8-7.7); BASOPHIL # 0.1 TH/MM3 (0-0.2); BASOPHIL % 0.7 % (0.0-2.0); HEMATOCRIT 43.8 % (39.0-51.0); HEMO FLAGS DIFF FINAL; LYMPH % 20.7 % (9.0-44.0); LYMPHOCYTE # 1.7 TH/MM3 (1.0-4.8); MEAN CELL VOLUME 80.3 FL (80.0-100.0); MEAN CORPUSCULAR HEMOGLOBIN 26.6 PG (27.0-34.0); MEAN CORPUSCULAR HGB CONC 33.2 % (32.0-36.0); MONO % 7.8 % (0.0-8.0); NEUT % 70.8 % (16.0-70.0); PLATELET COUNT 229 TH/MM3 (150-450); RED BLOOD COUNT 5.45 MIL/MM3 (4.50-5.90); RED CELL DISTRIBUTION WIDTH 15.6 % (11.6-17.2)
[2016-12-30 05:47] LABS: BICARBONATE 26.7 MEQ/L (21.0-32.0); MAGNESIUM 1.8 MG/DL (1.5-2.5); POTASSIUM 3.4 MEQ/L (3.5-5.1)
[2016-12-30] MEDS: INSULIN ASPART SUPPLEMENTAL SCALE SQ SCH ×4 (06:44→21:00)
[2016-12-30] MEDS: SODIUM CHLORID 0.9% 500 ML IV SCH ×5 (07:30→20:17)
[2016-12-30 08:00] VITALS: BP 141/82; PULSE 101; RESP 19; TEMP 99.3; O2SAT 95
[2016-12-30] MEDS: VANCOMYCIN INJ 2,250 MG in SODIUM CHLORID 0.9% 500 ML INJ 500 ML IV SCH (08:17)
[2016-12-30] MEDS: METOPROLOL TARTRATE 50 MG TAB PO SCH ×2 (08:17→20:17)
[2016-12-30] MEDS: SODIUM CHLORIDE 0.9% FLUSH 5 ML FLUSH FLUSH SCH ×2 (08:17→20:15)
[2016-12-30] MEDS ORDERED: METOPROLOL TARTRATE 25 MG TAB PO PRN (09:30)
[2016-12-30] MEDS ORDERED: INSULIN HUMAN REGULAR 1,000 UNITS/10 ML VIAL SQ PRN (09:30)
[2016-12-30] MEDS: LACTATED RINGER'S 1000 ML IV SCH (09:30)
[2016-12-30] MEDS ORDERED: POTASSIUM PHOSPHATE INJ 15 MMOL in SODIUM CHLORIDE 0.9% INJ 150 ML IV ONE (11:00)
--- NOTE | 2016-12-30 11:20 | ETE ---
Study Study Date:12/30/2016 STUDY CONCLUSIONS SUMMARY - Study data: Transesophageal echocardiography. The patient tolerated the procedure well. - Left ventricle: The cavity size was normal. Wall thickness was normal. Systolic function was normal. The estimated ejection fraction was in the range of 55% to 60%. Wall motion was normal; there were no regional wall motion abnormalities. - Aortic valve: Normally functioning bioprosthetic valve. Minimal to mild leaflet sclerosis. No evidence of vegetation. - Mitral valve: No evidence of vegetation. Trace regurgitation. - Left atrium: No evidence of thrombus in the atrial cavity or appendage. - Right atrium: The atrium was normal in size. There is a pacemaker lead coursing through the right atrium. There are irregular, strand-like, mobile echodensities on the lead. On one view there is suggestion of a small, mobile irregular echodensity in the vicinity of the lead. A vegetation cannot be ruled out. No evidence of thrombus in the atrial cavity or appendage. - Atrial septum: No defect or patent foramen ovale was identified. - Tricuspid valve: No evidence of vegetation. - Pulmonic valve: No evidence of vegetation. If LV function is below 40, please consider prescribing an ACEI or ARB or document rationale for non-use. PROCEDURE DATA Consent: The risks, benefits, and alternatives to the procedure were explained to the patient and informed consent was obtained. Procedure: Initial setup. The patient was brought to the laboratory in the fasting state. Intravenous access was obtained. Surface ECG leads and pulse oximetric signals were monitored. Sedation. Conscious sedation was administered by cardiology staff. Transesophageal echocardiography. Topical anesthesia was obtained using viscous lidocaine. A transesophageal probe was inserted by the attending prop sawyer. Image quality was good. Study completion: All IVs inserted during the procedure were removed. The patient tolerated the procedure well. There were no complications. Transesophageal echocardiography. 2D, complete spectral Doppler, and color Doppler. CARDIAC ANATOMY LEFT VENTRICLE: The cavity size was normal. Wall thickness was normal. Systolic function was normal. The estimated ejection fraction was in the range of 55% to 60%. Wall motion was normal; there were no regional wall motion abnormalities. AORTIC VALVE: Normally functioning bioprosthetic valve. Minimal to mild leaflet sclerosis. Cusp separation was normal. No evidence of vegetation. Doppler: No significant regurgitation. Aorta: - There was atheromatous plaque. There was no evidence for dissection. Aortic root: The aortic root was not dilated. Ascending aorta: The ascending aorta was normal in size. Aortic arch: The aortic arch was normal in size. Descending aorta: The descending aorta was normal in size. MITRAL VALVE: Structurally normal valve. Leaflet separation was normal. No evidence of vegetation. Doppler: Trace regurgitation. LEFT ATRIUM: The atrium was normal in size. No evidence of thrombus in the atrial cavity or appendage. The appendage was morphologically a left appendage, multilobulated, and of normal size. Emptying velocity was normal. ATRIAL SEPTUM: No defect or patent foramen ovale was identified. RIGHT VENTRICLE: The cavity size was normal. Wall thickness was normal. Systolic function was normal. PULMONIC VALVE: Structurally normal valve. No evidence of vegetation. TRICUSPID VALVE: Structurally normal valve. Leaflet separation was normal. No evidence of vegetation. Doppler: No significant regurgitation. PULMONARY ARTERY: The main pulmonary artery was normal-sized. RIGHT ATRIUM: The atrium was normal in size. There is a pacemaker lead coursing through the right atrium. There are irregular, strand-like, mobile echodensities on the lead. On one view there is suggestion of a small, mobile irregular echodensity in the vicinity of the lead. A vegetation cannot be ruled out. No evidence of thrombus in the atrial cavity or appendage. The appendage was morphologically a right appendage. PERICARDIUM: There was no pericardial effusion. Prepared and signed by Nnamdi Goodwin [id number]
--- NOTE | 2016-12-30 11:32 | PD.CARD.PN ---
Subjective Subjective Remarks Denies CP, dyspnea, palpitations, dizziness, PND. Feels "much better" today. Objective Medications Item Value Date Time Metoprolol 50 mg 12/28/16 2315 Tartrate BID/PO 12/30/16 0817 (Lopressor) Vital Signs / I&O Vital Signs Date Time Temp Pulse Resp B/P Pulse Ox O2 Delivery O2 Flow Rate FiO2 12/30/16 08:00 99.3 101 19 141/82 95 12/30/16 04:00 100.0 92 19 136/84 93 12/30/16 00:00 100.0 108 18 178/89 92 12/29/16 20:00 98.7 110 21 167/83 95 12/29/16 19:52 65 12/29/16 16:00 99.3 106 18 137/77 95 12/29/16 12:00 99.8 84 20 113/81 96 I/O 12/29/16 12/29/16 12/29/16 12/30/16 12/30/16 12/30/16 07:00 15:00 23:00 07:00 15:00 23:00 Intake Total 821 ml 880 ml 120 ml 120 ml Output Total 1200 ml 750 ml 400 ml 300 ml Balance -379 ml 130 ml -280 ml 120 ml -300 ml Intake Oral 120 ml 880 ml 120 ml 120 ml IV Total 701 ml Output Urine Total 1200 ml 750 ml 400 ml 300 ml # Voids 3 6 # Bowel Movements 1 1 0 0 Physical Exam GENERAL: Well developed, well nourished. No acute distress. HEENT: Jugular venous pressure is normal. CHEST: Lungs clear to auscultation bilaterally. Unlabored respiratory effort. CARDIAC: Regular rate and rhythm without S3, S4. II/ EPIFANIO base. Normal S2. ABDOMEN: Soft, nontender, no hepatosplenomegaly. Bowel sounds present. EXTREMITIES: No clubbing, cyanosis. Trace edema. Laboratory Laboratory Tests Test 12/29/16 12/30/16 17:25 03:45 Erythrocyte Sedimentation Rate 10 mm/hr White Blood Count 8.0 TH/MM3 Red Blood Count 5.45 MIL/MM3 Hemoglobin 14.5 GM/DL Hematocrit 43.8 % Mean Corpuscular Volume 80.3 FL Mean Corpuscular Hemoglobin 26.6 PG Mean Corpuscular Hemoglobin 33.2 % Concent Red Cell Distribution Width 15.6 % Platelet Count 229 TH/MM3 Mean Platelet Volume 9.2 FL Neutrophils (%) (Auto) 70.8 % Lymphocytes (%) (Auto) 20.7 % Monocytes (%) (Auto) 7.8 % Eosinophils (%) (Auto) 0.0 % Basophils (%) (Auto) 0.7 % Neutrophils # (Auto) 5.6 TH/MM3 Lymphocytes # (Auto) 1.7 TH/MM3 Monocytes # (Auto) 0.6 TH/MM3 Eosinophils # (Auto) 0.0 TH/MM3 Basophils # (Auto) 0.1 TH/MM3 CBC Comment DIFF FINAL Differential Comment Sodium Level 136 MEQ/L Potassium Level 3.4 MEQ/L Chloride Level 99 MEQ/L Carbon Dioxide Level 26.7 MEQ/L Anion Gap 10 MEQ/L Blood Urea Nitrogen 12 MG/DL Creatinine 1.00 MG/DL Estimat Glomerular Filtration 75 ML/MIN Rate Random Glucose 143 MG/DL Calcium Level 8.5 MG/DL Phosphorus Level 2.1 MG/DL Magnesium Level 1.8 MG/DL C-Reactive Protein 10.00 MG/DL Albumin 2.7 GM/DL Assessment and Plan Problem List: (1) Sepsis Assessment and Plan: RAMBO shows no vegetation on his AVR. There are echodensities on his pacemaker lead, unclear etiology, one of which is suggestive of vegetation though difficult to be certain from the images obtained. Rec pacer system extraction only if w/u reveals no other source of infection (2) CAD (coronary artery disease) Assessment and Plan: Possible history of inferoapical MS by previous echo and nuclear stress test imaging. Stable. No definite angina. (3) History of aortic valve replacement Assessment and Plan: Stable. RAMBO shows normal AVR function with no definite vegetation. (4) History of cardiac pacemaker Code Status full code Discussed Condition With patient's Problem Qualifiers (1) Sepsis: Qualified Code: A41.9 - Sepsis, due to unspecified organism (2) CAD (coronary artery disease): Qualified Code: I25.10 - Coronary artery disease involving [place] coronary artery of [place] heart without angina pectoris Nnamdi Goodwin MD Dec 30, 2016 11:32
[2016-12-30 12:00] VITALS: BP 157/83; PULSE 85; RESP 19; TEMP 98.5; O2SAT 95
[2016-12-30] MEDS ORDERED: PROPOFOL 200 MG/20 ML AMP IV ONE (12:16)
--- NOTE | 2016-12-30 12:17 | HHI.PR ---
Subjective Remarks Follow up for sepsis. Feeling better today. Family at bedside. No nausea or vomiting. No CP or SOB. No chills. No dysuria. Normal BM yesterday. Wants to eat. Objective Vitals Vital Signs Date Time Temp Pulse Resp B/P Pulse Ox O2 Delivery O2 Flow Rate FiO2 12/30/16 08:00 99.3 101 19 141/82 95 12/30/16 04:00 100.0 92 19 136/84 93 12/30/16 00:00 100.0 108 18 178/89 92 12/29/16 20:00 98.7 110 21 167/83 95 12/29/16 19:52 65 12/29/16 16:00 99.3 106 18 137/77 95 I/O 12/29/16 12/29/16 12/29/16 12/30/16 12/30/16 12/30/16 07:00 15:00 23:00 07:00 15:00 23:00 Intake Total 821 ml 880 ml 120 ml 120 ml Output Total 1200 ml 750 ml 400 ml 300 ml Balance -379 ml 130 ml -280 ml 120 ml -300 ml Intake Oral 120 ml 880 ml 120 ml 120 ml IV Total 701 ml Output Urine Total 1200 ml 750 ml 400 ml 300 ml # Voids 3 6 # Bowel Movements 1 1 0 0 Result Diagram: 12/30/1634412/30/16344 Imaging Last Impressions Head CT 12/28/16 184 Signed Impressions: Service Date/Time: Wednesday, December 28, 2016 19:28 - CONCLUSION: Bifrontal and right occipital encephalomalacia. Ventricles are mildly prominent. Right parietal ventriculostomy catheter unchanged. Juan Howell MD Chest X-Ray 12/28/16 182 Signed Impressions: Service Date/Time: Wednesday, December 28, 2016 18:54 - CONCLUSION: Cardiomegaly and previous CABG. Left basilar scarring.. Juan Howell MD Objective Remarks GENERAL: Well-developed well-nourished morbidly obese. In no acute distress. SKIN: Warm and dry. No lesions noted. HEENT: Normocephalic. Pupils equal and round. Mucous membranes pink and moist. CARDIOVASCULAR: Regular rate and rhythm. Systolic murmur appreciated. RESPIRATORY: No accessory muscle use. Clear to auscultation. Breath sounds equal bilaterally. GASTROINTESTINAL: Abdomen soft, non-tender, nondistended. Bowel sounds x4. MUSCULOSKELETAL: No obvious deformities. No clubbing or cyanosis. No edema. NEUROLOGICAL: Awake and alert. No focal neurological deficits. Moves upper and lower extremities spontaneously. Normal speech. PSYCHIATRIC: Appropriate mood and affect; insight and judgment normal. Date of Insertion: Dec 28, 2016 Date of Removal: Dec 29, 2016 A/P Problem List: (1) Sepsis ICD Code: A41.9 Status: Acute (2) Ataxia ICD Code: R27.0 Status: Acute (3) Hypokalemia ICD Code: E87.6 Status: Acute (4) Meningioma ICD Code: D32.9 Status: Acute (5) DM (diabetes mellitus) ICD Code: E11.9 Status: Acute Assessment and Plan 66-year-old male with a PMH of Meningioma, Hydrocephalus s/p [employer] Shunt, AVR, HTN and DM who was brought to the ER by EMS secondary to ataxia and generalized weakness x1 day. Per , pt had fever of 101 last evening w/ complaints of generalized weakness and non-productive cough. Today, pt had recurrent febrile episode. noted pt to be diaphoretic, ataxic, "walking into rodriguez" and s/p nausea/vomiting x1, at which point she called EMS. Sepsis: HR 107, Temp 100.5, WBC 12.9, Source-unclear, ?[employer] Shunt Infection. Possible recurrence of Endocarditis. U/a negative. CXR w/ no acute findings. Blood Cultures with NGTD. Continue IV Vanc/Cefepime. Follow up cultures. IVF for hydration. Consulted infectious disease, appreciate input. Meningioma: s/p resection w/ Hydrocephalus s/p [employer] Shunt. Follows w/ Dr. Singh as outpatient, consulted, recommendation for CSF culture/gram stain from Shunt. Follow up cultures. Continue broad spectrum IV Abx. Neuro checks. Ataxia: CT Head w/ bifrontal and right occipital encephalomalacia, ventricles mildly prominent, right parietal ventriculostomy catheter unchanged. Possibly related to [employer] Shunt infection. Neuro checks. Appreciate neurosurgery evaluation. PT for eval/tx. Hx of Endocarditis: with 2 bio-prosthetic aortic valve replacements in 2011 due to endocarditis. Currently on Doxycycline, will continue. Consulted cardiology, performed RAMBO, cannot rule out pacer lead vegetation. Infectious disease consulted. CAD/HTN/HLD: chronic, continue patient's metoprolol, statin. Held ASA for procedure. Hypokalemia: K+ 3.4 s/p replacement. Give additional IV replacement. Repeat labs in the am. DM: Sliding scale w/ Accu-Checks. Hold Metformin for now in light of Sepsis. DVT Prophylaxis: SCD/Teds. Written by Jalil Baker, acting as scribe for Dr. Baltazar on 12/30/16 at 12:16. Attending Statement The documentation accurately reflects the work performed [id number] by tx, Dr. Baltazar on 12/30/16 at 12:16. Problem Qualifiers (1) Sepsis: Qualified Code: A41.9 - Sepsis, due to unspecified organism Jalil Baker Dec 30, 2016 12:17 Andrzej Balatzar MD Jan 05, 2017 07:23
--- NOTE | 2016-12-30 14:56 | HHI.IDPN ---
Subjective Subjective Remarks Notes reviewed Has low grade temps Feels better Had RAMBO - valves ok, has an abnormality st pacer lead ESR 10 CRP 10 BC negative so far Amylase, lipase normal Antibiotics Vancomycin Cefepime Lines PIV Past Medical History Past Medical History CAD Meningioma, had resection 10/2011 Diabetes Hyperlipidemia Previous history of nonsustained ventricular tachycardia Aortic valve endocarditis with MSSA in 2011 Past Surgical History S/P AVR, January 2012, redo-AVR March 2012, porcine AVR Pacemaker April 2012, ?complete heart block October 2011 resection of the meningioma November 2011 DENTAL BILLER shunt placement, followed by replacement of bone flap with cranioplasty Splenectomy Umbilical hernia repair Allergies: Coded Allergies: Dilantin (Verified Allergy, Severe, Rash, 06/06/16) Uncoded Allergies: STATIN DRUGS (Adverse Reaction, Severe, 11/12/12) Objective . Vital Signs Date Time Temp Pulse Resp B/P Pulse Ox O2 Delivery O2 Flow Rate FiO2 12/30/16 12:00 98.5 85 19 157/83 95 12/30/16 08:00 99.3 101 19 141/82 95 12/30/16 04:00 100.0 92 19 136/84 93 12/30/16 00:00 100.0 108 18 178/89 92 12/29/16 20:00 98.7 110 21 167/83 95 12/29/16 19:52 65 12/29/16 16:00 99.3 106 18 137/77 95 12/29/16 12/29/16 12/30/16 15:00 23:00 07:00 Intake Total 880 ml 120 ml 120 ml Output Total 750 ml 400 ml Balance 130 ml -280 ml 120 ml Intake Oral 880 ml 120 ml 120 ml Output Urine Total 750 ml 400 ml # Voids 3 6 # Bowel Movements 1 0 0 . Laboratory Tests Test 12/28/16 12/29/16 12/29/16 12/30/16 18:30 05:50 17:25 03:45 White Blood Count 12.9 TH/MM3 9.9 TH/MM3 8.0 TH/MM3 Red Blood Count 5.82 MIL/MM3 5.45 MIL/MM3 5.45 MIL/MM3 Hemoglobin 15.6 GM/DL 14.7 GM/DL 14.5 GM/DL Hematocrit 47.5 % 43.8 % 43.8 % Mean Corpuscular Volume 81.6 FL 80.3 FL 80.3 FL Mean Corpuscular Hemoglobin 26.8 PG 26.9 PG 26.6 PG Mean Corpuscular Hemoglobin 32.8 % 33.5 % 33.2 % Concent Red Cell Distribution Width 15.3 % 15.1 % 15.6 % Platelet Count 256 TH/MM3 237 TH/MM3 229 TH/MM3 Mean Platelet Volume 9.4 FL 9.1 FL 9.2 FL Neutrophils (%) (Auto) 80.2 % 79.5 % 70.8 % Lymphocytes (%) (Auto) 11.5 % 13.8 % 20.7 % Monocytes (%) (Auto) 7.6 % 5.9 % 7.8 % Eosinophils (%) (Auto) 0.0 % 0.0 % 0.0 % Basophils (%) (Auto) 0.7 % 0.8 % 0.7 % Neutrophils # (Auto) 10.4 TH/MM3 7.9 TH/MM3 5.6 TH/MM3 Lymphocytes # (Auto) 1.5 TH/MM3 1.4 TH/MM3 1.7 TH/MM3 Monocytes # (Auto) 1.0 TH/MM3 0.6 TH/MM3 0.6 TH/MM3 Eosinophils # (Auto) 0.0 TH/MM3 0.0 TH/MM3 0.0 TH/MM3 Basophils # (Auto) 0.1 TH/MM3 0.1 TH/MM3 0.1 TH/MM3 CBC Comment DIFF FINAL DIFF FINAL DIFF FINAL Differential Comment Erythrocyte Sedimentation Rate 10 mm/hr Laboratory Tests Test 12/28/16 12/29/16 12/30/16 18:30 05:50 03:45 Sodium Level 134 MEQ/L 140 MEQ/L 136 MEQ/L Potassium Level 3.2 MEQ/L 3.4 MEQ/L 3.4 MEQ/L Chloride Level 97 MEQ/L 102 MEQ/L 99 MEQ/L Carbon Dioxide Level 23.4 MEQ/L 27.3 MEQ/L 26.7 MEQ/L Anion Gap 14 MEQ/L 11 MEQ/L 10 MEQ/L Blood Urea Nitrogen 17 MG/DL 14 MG/DL 12 MG/DL Creatinine 1.11 MG/DL 1.11 MG/DL 1.00 MG/DL Estimat Glomerular Filtration 66 ML/MIN 66 ML/MIN 75 ML/MIN Rate Random Glucose 200 MG/DL 138 MG/DL 143 MG/DL Lactic Acid Level 1.7 mmol/L Calcium Level 8.2 MG/DL 8.1 MG/DL 8.5 MG/DL Total Bilirubin 0.4 MG/DL 0.3 MG/DL Aspartate Amino Transf 27 U/L 24 U/L (AST/SGOT) Alanine Aminotransferase 27 U/L 24 U/L (ALT/SGPT) Alkaline Phosphatase 87 U/L 69 U/L Total Creatine Kinase 62 U/L Troponin I 0.03 NG/ML Total Protein 7.1 GM/DL 6.3 GM/DL Albumin 3.4 GM/DL 2.8 GM/DL 2.7 GM/DL Amylase Level 26 U/L Lipase 135 U/L Phosphorus Level 2.1 MG/DL Magnesium Level 1.8 MG/DL C-Reactive Protein 10.00 MG/DL Microbiology Date/Time Procedure Status Source Growth 12/28/16 18:25 Aerobic Blood Culture - Preliminary Resulted Blood Peripheral NO GROWTH IN 2 DAYS 12/28/16 18:25 Anaerobic Blood Culture - Preliminary Resulted Blood Peripheral NO GROWTH IN 2 DAYS 12/28/16 18:30 Aerobic Blood Culture - Preliminary Resulted Blood Peripheral NO GROWTH IN 2 DAYS 12/28/16 18:30 Anaerobic Blood Culture - Preliminary Resulted Blood Peripheral NO GROWTH IN 2 DAYS 12/28/16 18:35 Influenza Types A,B Antigen ([facility]MAN) - Final Complete Nasal Washing NEGATIVE FOR FLU A AND B ANTIGEN.... 12/29/16 19:20 Aerobic Blood Culture - Preliminary Resulted Blood Peripheral NO GROWTH IN 1 DAY 12/29/16 19:20 Anaerobic Blood Culture - Preliminary Resulted Blood Peripheral NO GROWTH IN 1 DAY 12/29/16 19:20 Aerobic Blood Culture - Preliminary Resulted Blood Peripheral NO GROWTH IN 1 DAY 12/29/16 19:20 Anaerobic Blood Culture - Preliminary Resulted Blood Peripheral NO GROWTH IN 1 DAY Imaging Last Impressions Head CT 12/28/16 1847 Signed Impressions: Service Date/Time: Wednesday, December 28, 2016 19:28 - CONCLUSION: Bifrontal and right occipital encephalomalacia. Ventricles are mildly prominent. Right parietal ventriculostomy catheter unchanged. Juan Howell MD Chest X-Ray 12/28/16 1821 Signed Impressions: Service Date/Time: Wednesday, December 28, 2016 18:54 - CONCLUSION: Cardiomegaly and previous CABG. Left basilar scarring.. Juan Howell MD Physical Exam GENERAL: awake and alert, has flushed face, in no apparent distress. SKIN: Warm skin, moist, no generalized rash, no ecchymoses, no embolic lesions. HEAD: DENTAL BILLER shunt site on the right side of the head with no tenderness or redness EYES: [place] conjunctivae, no petechia or hemorrhage. No scleral icterus. Has mild conjunctival injection on the left side. No drainage. ENT: Moist oral mucosa. Throat without erythema, or exudate. Uvula midline. Airway patent. NECK: Trachea midline. No JVD or lymphadenopathy. Supple, nontender, no meningeal signs. CARDIOVASCULAR: Regular rate and rhythm , has murmur heard best at base, no rub. healed sternotomy incision. Pacer in L upper chest with no evidence of infection RESPIRATORY: Clear to auscultation. Breath sounds equal bilaterally. No wheezes , rales, or rhonchi. Decreased BS at the bases GASTROINTESTINAL: Abdomen obese, soft, non-tender, nondistended. Bowel sounds are present and normoactive. There is a reducible umbilical hernia. No hepato- splenomegaly, or palpable masses. No guarding. No rebound. Multiple scars in the abdomen compatible with his surgical history. MUSCULOSKELETAL: Extremities without clubbing, cyanosis, or edema. No joint tenderness, effusion, or edema noted. No calf tenderness. Negative Homans sign bilaterally. No peripheral embolic lesions noted. NEUROLOGICAL: Awake and alert. Cranial nerves II through XII intact. Motor and sensory grossly within normal limits. Five out of 5 muscle strength in all muscle groups. Normal speech. 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
[2016-12-30 20:00] VITALS: BP 181/87; PULSE 90; RESP 21; TEMP 97.3; O2SAT 95
[2016-12-30] MEDS: DOXYCYCLINE HYCLATE 100 MG CAP PO SCH (20:17)
--- NOTE | 2016-12-30 23:22 | HHI.NSPN ---
Note Status Status: Progress Note Interval History Diagnosis sepsis Interval History This is a 66-year-old male with history of Meningioma, Hydrocephalus s/p OTC CLERK Shunt, HTN and DM who was brought to [facility] department with ataxia and generalized weakness x1 day. Apparently he had fever of 101 last evening with generalized weakness and non-productive cough. He was diaphoretic and ataxic, "walking into rodriguez", No LOC. No seizure activity noted. No tongue bitting. No in continence of stool or urine. Reports nausea/vomiting x1, she called EMS. On arrival, Temp was 100.5. CT Head bifrontal and right occipital encephalomalacia, ventricles are mildly prominent, right parietal ventriculostomy catheter unchanged. Neurosurgical consultation was requested 12/30. Neurologically stable. No meningeal signs. Still febrile. Echo done today Labs, Micro, & Vital Signs Results Date Time Temp Pulse Resp B/P Pulse Ox O2 Delivery O2 Flow Rate FiO2 12/30/16 20:00 97.3 90 21 181/87 95 12/30/16 12:00 98.5 85 19 157/83 95 12/30/16 08:00 99.3 101 19 141/82 95 12/30/16 04:00 100.0 92 19 136/84 93 12/30/16 00:00 100.0 108 18 178/89 92 12/30/16 07:00 Intake Total 1120 ml Output Total 1150 ml Balance -30 ml Constitutional Vital Signs Date Time Temp Pulse Resp B/P Pulse Ox O2 Delivery O2 Flow Rate FiO2 12/30/16 20:00 97.3 90 21 181/87 95 12/30/16 12:00 98.5 85 19 157/83 95 12/30/16 08:00 99.3 101 19 141/82 95 12/30/16 04:00 100.0 92 19 136/84 93 12/30/16 00:00 100.0 108 18 178/89 92 12/30/16 07:00 Intake Total 1120 ml Output Total 1150 ml Balance -30 ml Review of Systems/Exam Exam Mr Peñaloza is alert, awake and oriented to time, place and person. Speech is fluent. Cranial nerve examination: pupils to be equal, round and reactive to light. Extra-ocular movements are intact. Facial motor and sensory function are normal and symmetrical. Gross hearing appears intact. Sternocleidomastoid and trapezius muscles are symmetrical. Other cranial nerves are intact. Neck is soft and supple with a good range of motion without pain. Muscle strength is normal in all muscle groups of both upper and lower extremities. Sensory examination is intact to light touch and pin prick in both the upper and lower extremities. Deep tendon reflexes are symmetrical in both upper and lower extremities. There is a bilateral plantar flexion response. Cerebellar examination is unremarkable, without deficits. Medications Current Medications Current Medications IV Flush 2 ml 2 ml UNSCH PRN IVF FLUSH AFTER USING IV ACCESS Last administered on 12/28/16 18:28; Start 12/28/16 at 18:30; Stop 12/28/16 at 20:58; Status DC Sodium Chloride 1,000 ml @ 999 mls/hr BOLUS ONCE IV Last administered on 12/28 18:28; Start 12/28/16 at 18:30; Stop 12/28/16 at 19:30; Status DC Vancomycin HCl 1750 mg/Sodium Chloride 517.5 ml @ 257.5 mls/ hr ONCE STAT IV Last administered on 12/28/16 20:48; Start 12/28/16 at 18:47; Stop 12/28/16 at 20:47; Status DC Cefepime HCl/ Sodium Chloride (Maxipime Inj/NS Inj) 100 ml @ 200 mls/hr ONCE STAT IV Last administered on 12/28/16 20:15; Start 12/28/16 at 18:47; Stop at 19:16; Status DC Doxycycline Hyclate 200 mg 200 mg ONCE ONCE PO Last administered on 12/28/16 21:08; Start 12/28/16 at 20:30; Stop 12/28/16 at 20:31; Status DC Potassium Chloride (KCl 20 Meq Premix Inj) 100 ml @ 50 mls/hr BOLUS ONCE IV Last administered on 12/28/16 22:08; Start 12/28/16 at 20:30; Stop 12/28/16 at 22:29; Status DC Potassium Chloride 40 meq 40 meq ONCE ONCE PO Last administered on 12/28/16 21:29; Start 12/28/16 at 21:15; Stop 12/28/16 at 21:16; Status DC Pharmacy Profile Note 0 ml @ 0 mls/hr UNSCH OTHER ; Start 12/28/16 at 20:45 Cefepime HCl 1000 mg/Sodium Chloride 100 ml @ 200 mls/hr Q12H IV Last administered on 12/29/16 09:01; Start 12/29/16 at 09:00; Stop 12/29/16 at 11:36 ; Status DC Sodium Chloride (NS 1000 ml Inj) 1,000 ml @ 100 mls/hr Q10H IV Last administered on 12/29/16 05:09; Start 12/28/16 at 20:33; Stop 12/29/16 at 13:49 ; Status DC IV Flush (NS Flush) 2 ml UNSCH PRN FLUSH FLUSH AFTER USING IV ACCESS; Start at 20:45 IV Flush (NS Flush) 2 ml BID FLUSH Last administered on 12/30/16 20:15; Start 12/28/16 at 21:00 Ondansetron HCl (Zofran Inj) 4 mg Q6H PRN IVP NAUSEA OR VOMITING; Start at 20:45 Bisacodyl (Dulcolax Supp) 10 mg DAILY PRN MO CONSTIPATION; Start 12/28/16 at 20 :45 Acetaminophen (Tylenol) 650 mg Q6H PRN PO FEVER/PAIN SCALE 1 TO 2 Last administered on 12/29/16 03:07; Start 12/28/16 at 20:45 Acetaminophen/ Hydrocodone Bitart (Milton 5-325 Mg) 1 tab Q4H PRN PO PAIN SCALE 3 TO 5; Start 12/28/16 at 20:45 Morphine Sulfate (Morphine Inj) 2 mg Q3H PRN IV Pain 6-10; Start 12/28/16 at 20 :45 Doxycycline Hyclate (Vibramycin) 200 mg HS PO Last administered on 12/30/16 20 :17; Start 12/28/16 at 21:00 Atorvastatin Calcium (Lipitor) 10 mg HS PO ; Start 12/28/16 at 22:00; Stop 12/28 at 23:13; Status DC Dextrose (D50w (Vial) Inj) 25 ml UNSCH PRN IV PUSH HYPOGLYCEMIA-SEE COMMENTS; Start 12/28/16 at 21:00 Glucagon (Glucagon Inj) 1 mg UNSCH PRN OTHER HYPOGLYCEMIA-SEE COMMENTS; Start 12/28/16 at 21:00 Insulin Aspart 1 1 ACHS SLIDING SCALE SQ Last administered on 12/29/16 21:24 ; Start 12/28/16 at 21:00 Vancomycin HCl/ Sodium Chloride (Vancomycin Inj/ NS 500 ml Inj) 522.5 ml @ 250 mls/hr Q18H IV Last administered on 12/30/16 08:17; Start 12/29/16 at 15:00 Miscellaneous Information SPECIFIC LAB TO BE DRAWN:VANCO TROUGH DATE TO... ONCE ONCE XX ; Start 12/31/16 at 02:45; Stop 12/31/16 at 02:46 Metoprolol Tartrate 50 mg 50 mg BID PO Last administered on 12/30/16 20:17; Start 12/28/16 at 23:15 Potassium Chloride 100 ml @ 100 mls/hr Q1H IV Last administered on 12/29/16 15:11; Start 12/29/16 at 13:00; Stop 12/29/16 at 15:59; Status DC Cefepime HCl 2000 mg/Sodium Chloride 100 ml @ 200 mls/hr Q8H IV ; Start at 17:00; Stop 12/29/16 at 17:33; Status DC Cefepime HCl 2000 mg/Sodium Chloride 100 ml @ 200 mls/hr Q8H IV Last administered on 12/30/16 20:17; Start 12/29/16 at 20:00 Sodium Chloride 500 ml @ 30 mls/hr [id number] IV ; Start 12/29/16 at 22:45 Sodium Chloride 500 ml @ 30 mls/hr [id number] IV ; Start 12/30/16 at 07:30; Stop 12/31/16 at 07:29 Lactated Ringer's 1,000 ml @ 30 mls/hr Q24H IV ; Start 12/30/16 at 09:30 Sodium Chloride (NS 500 ml Inj) 500 ml @ 30 mls/hr [id number] IV Last administered on 12/30/16 09:30; Start 12/30/16 at 09:30; Stop 12/31/16 at 09:29 Insulin Human Regular (NovoLIN R INJ) See Protocol Table ... UNSCH X1 PRN SQ SEE PROTOCOL; Start 12/30/16 at 09:30; Stop 12/31/16 at 09:29 Metoprolol Tartrate 25 mg 25 mg UNSCH X1 PRN PO SEE LABEL COMMENTS; Start 12/30 at 09:30; Stop 12/31/16 at 09:29 Potassium Phosphate/Sodium Chloride (Potassium Phosphate Inj/NS Inj) 155 ml @ 38.75 mls/ hr ONCE ONCE IV Last administered on 12/30/16t 12:40; Start at 11:00; Stop 12/30/16 at 14:59; Status DC Medical Decision Making MDM Remarks Last Impressions Head CT 12/28/16 1847 Signed Impressions: Service Date/Time: Wednesday, December 28, 2016 19:28 - CONCLUSION: Bifrontal and right occipital encephalomalacia. Ventricles are mildly prominent. Right parietal ventriculostomy catheter unchanged. Juan Howell MD Chest X-Ray 12/28/16 1821 Signed Impressions: Service Date/Time: Wednesday, December 28, 2016 18:54 - CONCLUSION: Cardiomegaly and previous CABG. Left basilar scarring.. Juan Howell MD Plan Plan Remarks (1) Sepsis ICD Code: A41.9 Status: Acute (2) Ataxia ICD Code: R27.0 Status: Acute (3) Hypokalemia ICD Code: E87.6 Status: Acute (4) Meningioma ICD Code: D32.9 Status: Acute (5) DM (diabetes mellitus) ICD Code: E11.9 Attending Statement Neuro. Continue neuro checks in a serial fashion. 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 Continue pulmonary toilette, nasotracheal suction, and breathing treatments with nebulizers. PT and OT eval Nutrition. Oral diet Hypokalemia: K+ 3.2, replaced Renal. continue monitor closely urine output, BUN and creatinine Meningioma. Resected. Not an issue Diabetes. continue Accu checks and slidding scale ID Sepsis: HR 107, Temp 100.5, WBC 12.9, Source-unclear, Blood Cultures, Vanc/ Cefepime in ER. U/a pending. Follow up cultures, IV Abx, IV hydration. continue Protonix for stress ulcer prophylaxis continue Alejandro hose and SCD's for DVT prophylaxis De Singh MD Dec 30, 2016 23:22
[2016-12-31] VITALS: BP 159/91; PULSE 89; RESP 20; TEMP 101.4; O2SAT 97
[2016-12-31] MEDS: ACETAMINOPHEN 325 MG TAB PO PRN (00:42)
[2016-12-31] MEDS: VANCOMYCIN INJ 2,250 MG in SODIUM CHLORID 0.9% 500 ML INJ 500 ML IV SCH ×2 (02:36→14:39)
[2016-12-31] MEDS ORDERED: PHARMACY ORDERED LAB XX ONE (02:45)
[2016-12-31 03:08] LABS: AUTOMATED NEUTROPHIL # 3.8 TH/MM3 (1.8-7.7); BASOPHIL # 0.1 TH/MM3 (0-0.2); BASOPHIL % 0.9 % (0.0-2.0); EOSINOPHIL % 0.1 % (0.0-4.0); HEMATOCRIT 43.8 % (39.0-51.0); LYMPH % 26.4 % (9.0-44.0); LYMPHOCYTE # 1.6 TH/MM3 (1.0-4.8); MEAN CELL VOLUME 79.3 FL (80.0-100.0); MONO % 10.2 % (0.0-8.0); NEUT % 62.4 % (16.0-70.0); PLATELET COUNT 228 TH/MM3 (150-450); RED BLOOD COUNT 5.52 MIL/MM3 (4.50-5.90); RED CELL DISTRIBUTION WIDTH 15.4 % (11.6-17.2); WHITE BLOOD COUNT 6.1 TH/MM3 (4.0-11.0)
[2016-12-31 03:16] LABS: BICARBONATE 26.9 MEQ/L (21.0-32.0)
[2016-12-31 04:00] VITALS: BP 156/86; PULSE 78; RESP 19; TEMP 96.8; O2SAT 94
[2016-12-31] MEDS: CEFEPIME INJ 2,000 MG in SODIUM CHLORIDE 0.9% INJ 100 ML IV SCH ×3 (04:20→21:21)
[2016-12-31 04:24] LABS: HEMO FLAGS AUTO DIFF
[2016-12-31 04:28] LABS: PLATELET ESTIMATE SMEAR NORMAL (NORMAL); PLATELET MORPHOLOGY NORMAL (NORMAL)
[2016-12-31 04:30] LABS: SCAN/DIFF AUTO DIFF CONFIRMED
[2016-12-31 04:31] LABS: ACANTHOCYTES OCC (NORMAL); BURR CELLS 1+ (NORMAL)
[2016-12-31] MEDS: INSULIN ASPART SUPPLEMENTAL SCALE SQ SCH ×5 (05:09→21:00)
[2016-12-31] MEDS: SODIUM CHLORID 0.9% 500 ML IV SCH (07:09)
[2016-12-31] MEDS: LACTATED RINGER'S 1000 ML IV SCH (07:10)
[2016-12-31] MEDS: METOPROLOL TARTRATE 50 MG TAB PO SCH ×2 (07:31→21:22)
[2016-12-31] MEDS: SODIUM CHLORIDE 0.9% FLUSH 5 ML FLUSH FLUSH SCH ×2 (07:38→21:29)
[2016-12-31 08:16] VITALS: BP 136/83; PULSE 75; RESP 17; TEMP 96.5; O2SAT 95
--- NOTE | 2016-12-31 11:49 | HHI.PR ---
Subjective Remarks SO at bedside. No N/V/CP/SOB/pain/lightheadedness/dizziness/dysuria/diarrhea/VELIZ /dental problems. He denies feeling the fever overnight. Normal BM. Chronic sinus problems, no acute worsening. The patient feels well and has no acute complaints today. All questions answered. Objective Vitals Vital Signs Date Time Temp Pulse Resp B/P Pulse Ox O2 Delivery O2 Flow Rate FiO2 12/31/16 08:16 96.5 75 17 136/83 95 12/31/16 04:00 96.8 78 19 156/86 94 12/31/16 00:00 101.4 89 20 159/91 97 12/30/16 20:00 97.3 90 21 181/87 95 12/30/16 12:00 98.5 85 19 157/83 95 I/O 12/30/16 12/30/16 12/30/16 12/31/16 12/31/16 12/31/16 07:00 15:00 23:00 07:00 15:00 23:00 Intake Total 120 ml 120 ml 240 ml 120 ml Output Total 300 ml 250 ml Balance 120 ml -180 ml 240 ml -130 ml Intake Oral 120 ml 120 ml 240 ml 120 ml Output Urine Total 300 ml 250 ml # Voids 6 4 2 3 # Bowel Movements 0 0 0 0 Result Diagram: 12/31/16 0230 12/31/16 0230 Imaging Last Impressions Head CT 12/28/16 1847 Signed Impressions: Service Date/Time: Wednesday, December 28, 2016 19:28 - CONCLUSION: Bifrontal and right occipital encephalomalacia. Ventricles are mildly prominent. Right parietal ventriculostomy catheter unchanged. Juan Howell MD Chest X-Ray 12/28/16 182 Signed Impressions: Service Date/Time: Wednesday, December 28, 2016 18:54 - CONCLUSION: Cardiomegaly and previous CABG. Left basilar scarring.. Juan Howell MD Objective Remarks GENERAL: Well-developed well-nourished morbidly obese. In no acute distress. SKIN: Warm and dry. No lesions noted. HEENT: Normocephalic. Pupils equal and round. Mucous membranes pink and moist. CARDIOVASCULAR: Regular rate and rhythm. Systolic murmur appreciated. RESPIRATORY: No accessory muscle use. Clear to auscultation. Breath sounds equal bilaterally. GASTROINTESTINAL: Abdomen soft, non-tender, nondistended. Bowel sounds x4. MUSCULOSKELETAL: No obvious deformities. No clubbing or cyanosis. No edema. NEUROLOGICAL: Awake and alert. No focal neurological deficits. Moves upper and lower extremities spontaneously. Normal speech. PSYCHIATRIC: Appropriate mood and affect; insight and judgment normal. 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 Per , pt had fever of 101 last evening w/ complaints of generalized weakness and non-productive cough. Today, pt had recurrent febrile episode. noted pt to be diaphoretic, ataxic, "walking into rodriguez" and s/p nausea/vomiting x1, at which point she called EMS. Sepsis: HR 107, Temp 100.5, WBC 12.9, Source-unclear, ?CHILD CARE CENTRE DIRECTOR Shunt Infection. Possible recurrence of Endocarditis. U/a negative. CXR w/ no acute findings. Blood Cultures with NGTD. Continue IV Vanc/Cefepime. Follow up cultures. IVF for hydration. Consulted infectious disease, appreciate input. 12/31 continued fevers overnight Meningioma: Ataxia at admission. CT Head w/ bifrontal and right occipital encephalomalacia, ventricles mildly prominent, right parietal ventriculostomy catheter unchanged. S/p resection w/ Hydrocephalus s/p CHILD CARE CENTRE DIRECTOR Shunt. Follows w/ Dr. Singh as outpatient, consulted, was unable to perform CSF culture/gram stain from Shunt. Follow up cultures. Continue broad spectrum IV Abx. Neuro checks. PT eval. Hx of Endocarditis: with 2 bio-prosthetic aortic valve replacements in 2011 due to endocarditis. Currently on Doxycycline, will continue. Consulted cardiology, performed RAMBO, cannot rule out pacer lead vegetation. Infectious disease consulted. CAD/HTN/HLD: chronic, continue patient's metoprolol, statin. Held ASA for procedure. Hypokalemia: K+ 3.0 s/p replacement. Give additional oral replacement. Replace phosphorus as well. Monitor. DM: Sliding scale w/ Accu-Checks. Hold Metformin for now in light of Sepsis. DVT Prophylaxis: SCD/Teds. Written by Jalil Baker, acting as scribe for Dr. Baltazar on 12/31/16 at 11:49. Discharge Planning Monitor cultures, follow ID recommendation Attending Statement The documentation accurately reflects the work performed [id number] by ak, Dr. Baltazar on 12/31/16 at 11:49. Problem Qualifiers (1) Sepsis: Qualified Code: A41.9 - Sepsis, due to unspecified organism Jalil Baker Dec 31, 2016 11:49 Andrzej Baltazar MD Jan 06, 2017 00:52
[2016-12-31 12:30] VITALS: BP 133/79; PULSE 75; RESP 16; TEMP 97.2; O2SAT 95
--- NOTE | 2016-12-31 13:32 | PD.CARD.PN ---
Subjective Subjective Remarks Denies dyspnea, CP, dizziness, palpitations, sweats, PND, nausea, abdominal pain. Objective Medications Item Value Date Time Metoprolol 50 mg 12/28/16 2315 Tartrate BID/PO 12/31/16 0731 (Lopressor) Vital Signs / I&O Vital Signs Date Time Temp Pulse Resp B/P Pulse Ox O2 Delivery O2 Flow Rate FiO2 12/31/16 08:16 96.5 75 17 136/83 95 12/31/16 04:00 96.8 78 19 156/86 94 12/31/16 00:00 101.4 89 20 159/91 97 12/30/16 20:00 97.3 90 21 181/87 95 I/O 12/30/16 12/30/16 12/30/16 12/31/16 12/31/16 12/31/16 07:00 15:00 23:00 07:00 15:00 23:00 Intake Total 120 ml 120 ml 240 ml 120 ml Output Total 300 ml 250 ml Balance 120 ml -180 ml 240 ml -130 ml Intake Oral 120 ml 120 ml 240 ml 120 ml Output Urine Total 300 ml 250 ml # Voids 6 4 2 3 # Bowel Movements 0 0 0 0 Physical Exam GENERAL: Well developed, well nourished. No acute distress. HEENT: Jugular venous pressure is normal. CHEST: Lungs clear to auscultation bilaterally. Unlabored respiratory effort. CARDIAC: Regular rate and rhythm without S3, S4. II/ EPIFANIO base. Normal S2. ABDOMEN: Soft, nontender, no hepatosplenomegaly. Bowel sounds present. EXTREMITIES: No clubbing, cyanosis. Trace edema. Laboratory Laboratory Tests Test 12/31/16 12/31/16 02:30 03:36 White Blood Count 6.1 TH/MM3 Red Blood Count 5.52 MIL/MM3 Hemoglobin 14.9 GM/DL Hematocrit 43.8 % Mean Corpuscular Volume 79.3 FL Mean Corpuscular Hemoglobin 27.0 PG Mean Corpuscular Hemoglobin 34.0 % Concent Red Cell Distribution Width 15.4 % Platelet Count 228 TH/MM3 Mean Platelet Volume 9.3 FL Neutrophils (%) (Auto) 62.4 % Lymphocytes (%) (Auto) 26.4 % Monocytes (%) (Auto) 10.2 % Eosinophils (%) (Auto) 0.1 % Basophils (%) (Auto) 0.9 % Neutrophils # (Auto) 3.8 TH/MM3 Lymphocytes # (Auto) 1.6 TH/MM3 Monocytes # (Auto) 0.6 TH/MM3 Eosinophils # (Auto) 0.0 TH/MM3 Basophils # (Auto) 0.1 TH/MM3 CBC Comment AUTO DIFF Differential Comment AUTO DIFF CONFIRMED Platelet Estimate NORMAL Platelet Morphology Comment NORMAL Clau Cells 1+ Acanthocytes OCC Sodium Level 137 MEQ/L Potassium Level 3.0 MEQ/L Chloride Level 99 MEQ/L Carbon Dioxide Level 26.9 MEQ/L Anion Gap 11 MEQ/L Blood Urea Nitrogen 12 MG/DL Creatinine 0.84 MG/DL Estimat Glomerular Filtration 91 ML/MIN Rate Random Glucose 157 MG/DL Calcium Level 8.2 MG/DL Vancomycin Level Trough LESS THAN 0.8 MCG/ML Assessment and Plan Problem List: (1) Sepsis Assessment and Plan: RAMBO shows no vegetation on his AVR. There are echodensities on his pacemaker lead, unclear etiology, one of which is suggestive of vegetation though difficult to be certain from the images obtained. Rec pacer system extraction only if w/u reveals no other source of infection (2) CAD (coronary artery disease) Assessment and Plan: Possible history of inferoapical NE by previous echo and nuclear stress test imaging. Stable. No definite angina. (3) History of aortic valve replacement (4) History of cardiac pacemaker (5) Hypertension Assessment and Plan: Suboptimal BP's. Rec resume his HCTZ. Code Status full code Discussed Condition With patient and Problem Qualifiers (1) Sepsis: Qualified Code: A41.9 - Sepsis, due to unspecified organism (2) CAD (coronary artery disease): Qualified Code: I25.10 - Coronary artery disease involving [place] coronary artery of [place] heart without angina pectoris (3) Hypertension: Qualified Code: I10 - Essential hypertension Nnamdi Goodwin MD Dec 31, 2016 13:32
[2016-12-31] MEDS ORDERED: POTASSIUM CHLORIDE 20 MEQ CONTROLLED RELEASE TAB PO ONE (14:00)
[2016-12-31] MEDS ORDERED: POTASSIUM PHOSPHATE MONOBASIC 500 MG TAB PO ONE (14:00)
--- NOTE | 2016-12-31 14:06 | HHI.IDPN ---
Subjective Subjective Remarks Notes reviewed Feels good Had fever at 4 am, patient did not know or feel it He sweats a lot normally All BC are negative Had RAMBO - valves ok, has an abnormality at pacer lead ESR 10 CRP 10 Amylase, lipase normal Not SOB No cough No CP No N/V No diarrhea Voiding ok No rash Antibiotics Vancomycin Cefepime Lines PIV Past Medical History Meningioma, had resection 10/2011 Diabetes Hyperlipidemia Previous history of nonsustained ventricular tachycardia Aortic valve endocarditis with MSSA in 2011 Past Surgical History S/P AVR, January 2012, redo-AVR March 2012, porcine AVR Pacemaker April 2012, ?complete heart block October 2011 resection of the meningioma November 2011 TERRITORY MANAGER shunt placement, followed by replacement of bone flap with cranioplasty Splenectomy Umbilical hernia repair Allergies: Coded Allergies: Dilantin (Verified Allergy, Severe, Rash, 06/06/16) Uncoded Allergies: STATIN DRUGS (Adverse Reaction, Severe, 11/12/12) Objective . Vital Signs Date Time Temp Pulse Resp B/P Pulse Ox O2 Delivery O2 Flow Rate FiO2 12/31/16 08:16 96.5 75 17 136/83 95 12/31/16 04:00 96.8 78 19 156/86 94 12/31/16 00:00 101.4 89 20 159/91 97 12/30/16 20:00 97.3 90 21 181/87 95 12/30/16 12/30/16 12/31/16 15:00 23:00 07:00 Intake Total 120 ml 240 ml 120 ml Output Total 300 ml 250 ml Balance -180 ml 240 ml -130 ml Intake Oral 120 ml 240 ml 120 ml Output Urine Total 300 ml 250 ml # Voids 4 2 3 # Bowel Movements 0 0 0 . Laboratory Tests Test 12/29/16 12/30/16 12/31/16 17:25 03:45 02:30 Erythrocyte Sedimentation Rate 10 mm/hr White Blood Count 8.0 TH/MM3 6.1 TH/MM3 Red Blood Count 5.45 MIL/MM3 5.52 MIL/MM3 Hemoglobin 14.5 GM/DL 14.9 GM/DL Hematocrit 43.8 % 43.8 % Mean Corpuscular Volume 80.3 FL 79.3 FL Mean Corpuscular Hemoglobin 26.6 PG 27.0 PG Mean Corpuscular Hemoglobin 33.2 % 34.0 % Concent Red Cell Distribution Width 15.6 % 15.4 % Platelet Count 229 TH/MM3 228 TH/MM3 Mean Platelet Volume 9.2 FL 9.3 FL Neutrophils (%) (Auto) 70.8 % 62.4 % Lymphocytes (%) (Auto) 20.7 % 26.4 % Monocytes (%) (Auto) 7.8 % 10.2 % Eosinophils (%) (Auto) 0.0 % 0.1 % Basophils (%) (Auto) 0.7 % 0.9 % Neutrophils # (Auto) 5.6 TH/MM3 3.8 TH/MM3 Lymphocytes # (Auto) 1.7 TH/MM3 1.6 TH/MM3 Monocytes # (Auto) 0.6 TH/MM3 0.6 TH/MM3 Eosinophils # (Auto) 0.0 TH/MM3 0.0 TH/MM3 Basophils # (Auto) 0.1 TH/MM3 0.1 TH/MM3 CBC Comment DIFF FINAL AUTO DIFF Differential Comment AUTO DIFF CONFIRMED Platelet Estimate NORMAL Platelet Morphology Comment NORMAL [place] Cells 1+ Acanthocytes OCC Laboratory Tests Test 12/30/16 12/31/16 03:45 02:30 Sodium Level 136 MEQ/L 137 MEQ/L Potassium Level 3.4 MEQ/L 3.0 MEQ/L Chloride Level 99 MEQ/L 99 MEQ/L Carbon Dioxide Level 26.7 MEQ/L 26.9 MEQ/L Anion Gap 10 MEQ/L 11 MEQ/L Blood Urea Nitrogen 12 MG/DL 12 MG/DL Creatinine 1.00 MG/DL 0.84 MG/DL Estimat Glomerular Filtration 75 ML/MIN 91 ML/MIN Rate Random Glucose 143 MG/DL 157 MG/DL Calcium Level 8.5 MG/DL 8.2 MG/DL Phosphorus Level 2.1 MG/DL Magnesium Level 1.8 MG/DL C-Reactive Protein 10.00 MG/DL Albumin 2.7 GM/DL Microbiology Date/Time Procedure Status Source Growth 12/28/16 18:25 Aerobic Blood Culture - Preliminary Resulted Blood Peripheral NO GROWTH IN 3 DAYS 12/28/16 18:25 Anaerobic Blood Culture - Preliminary Resulted Blood Peripheral NO GROWTH IN 3 DAYS 12/28/16 18:30 Aerobic Blood Culture - Preliminary Resulted Blood Peripheral NO GROWTH IN 3 DAYS 12/28/16 18:30 Anaerobic Blood Culture - Preliminary Resulted Blood Peripheral NO GROWTH IN 3 DAYS 12/28/16 18:35 Influenza Types A,B Antigen ([facility]) - Final Complete Nasal Washing NEGATIVE FOR FLU A AND B ANTIGEN.... 12/29/16 19:20 Aerobic Blood Culture - Preliminary Resulted Blood Peripheral NO GROWTH IN 2 DAYS 12/29/16 19:20 Anaerobic Blood Culture - Preliminary Resulted Blood Peripheral NO GROWTH IN 2 DAYS 12/29/16 19:20 Aerobic Blood Culture - Preliminary Resulted Blood Peripheral NO GROWTH IN 2 DAYS 12/29/16 19:20 Anaerobic Blood Culture - Preliminary Resulted Blood Peripheral NO GROWTH IN 2 DAYS 12/31/16 02:30 Aerobic Blood Culture Received Blood Peripheral Pending 12/31/16 02:30 Anaerobic Blood Culture Received Blood Peripheral Pending 12/31/16 02:45 Aerobic Blood Culture Received Blood Peripheral Pending 12/31/16 02:45 Anaerobic Blood Culture Received Blood Peripheral Pending Imaging Last Impressions Head CT 12/28/16 1847 Signed Impressions: Service Date/Time: Wednesday, December 28, 2016 19:28 - CONCLUSION: Bifrontal and right occipital encephalomalacia. Ventricles are mildly prominent. Right parietal ventriculostomy catheter unchanged. Juan Howell MD Chest X-Ray 12/28/16 182 Signed Impressions: Service Date/Time: Wednesday, December 28, 2016 18:54 - CONCLUSION: Cardiomegaly and previous CABG. Left basilar scarring.. Juan Howell MD Physical Exam GENERAL: awake and alert, NAD SKIN: Warm skin, moist, no generalized rash, no ecchymoses, no embolic lesions. HEAD: TERRITORY MANAGER shunt site on the right side of the head with no tenderness or redness EYES: [place] conjunctivae, no petechia or hemorrhage. No scleral icterus. Has mild conjunctival injection on the left side. No drainage. ENT: Moist oral mucosa. Throat without erythema, or exudate. Uvula midline. Airway patent. NECK: Trachea midline. No JVD or lymphadenopathy. Supple, nontender, no meningeal signs. CARDIOVASCULAR: Regular rate and rhythm , has murmur heard best at base, no rub. healed sternotomy incision. Pacer in L upper chest with no evidence of infection RESPIRATORY: Clear to auscultation. Breath sounds equal bilaterally. No wheezes , rales, or rhonchi. Decreased BS at the bases GASTROINTESTINAL: Abdomen obese, soft, non-tender, nondistended. Bowel sounds are present and normoactive. There is a reducible umbilical hernia. No hepato- splenomegaly, or palpable masses. No guarding. No rebound. Multiple scars in the abdomen compatible with his surgical history. MUSCULOSKELETAL: Extremities without clubbing, cyanosis, or edema. No joint tenderness, effusion, or edema noted. No calf tenderness. Negative Homans sign bilaterally. No peripheral embolic lesions noted. 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
[2016-12-31] MEDS: HYDROCHLOROTHIAZIDE 25 MG TAB PO SCH (14:38)
[2016-12-31] MEDS: ASPIRIN EC 325 MG TABEC PO SCH (14:38)
[2016-12-31 16:02] VITALS: BP 131/87; PULSE 85; RESP 17; TEMP 96.9; O2SAT 97
[2016-12-31 20:00] VITALS: BP 136/85; PULSE 95; RESP 20; TEMP 96.7; O2SAT 96
[2017-01-01] VITALS: BP 156/80; PULSE 81; RESP 19; TEMP 97.9; O2SAT 95
[2017-01-01] MEDS: SODIUM CHLORID 0.9% 500 ML IV SCH ×2 (00:45→09:54)
[2017-01-01] MEDS: VANCOMYCIN INJ 2,250 MG in SODIUM CHLORID 0.9% 500 ML INJ 500 ML IV SCH ×2 (03:55→14:47)
[2017-01-01 04:00] VITALS: BP 165/79; PULSE 77; RESP 20; TEMP 97.7; O2SAT 96
[2017-01-01] MEDS: INSULIN ASPART SUPPLEMENTAL SCALE SQ SCH ×4 (04:08→21:00)
[2017-01-01] MEDS: CEFEPIME INJ 2,000 MG in SODIUM CHLORIDE 0.9% INJ 100 ML IV SCH ×2 (05:11→11:31)
[2017-01-01] MEDS: LACTATED RINGER'S 1000 ML IV SCH (06:57)
[2017-01-01 08:00] VITALS: BP 155/88; PULSE 76; RESP 17; TEMP 97.8; O2SAT 97
[2017-01-01] MEDS: HYDROCHLOROTHIAZIDE 25 MG TAB PO SCH (08:14)
[2017-01-01] MEDS: ASPIRIN EC 325 MG TABEC PO SCH (08:14)
[2017-01-01] MEDS: METOPROLOL TARTRATE 50 MG TAB PO SCH ×2 (08:14→21:03)
[2017-01-01] MEDS: SODIUM CHLORIDE 0.9% FLUSH 5 ML FLUSH FLUSH SCH ×2 (08:15→21:00)
--- NOTE | 2017-01-01 09:13 | RADRPT ---
EXAM DATE/TIME: 01/01/2017 08:51 [facility] COMPARISON: No previous studies available for comparison. INDICATIONS : Cough. MEDICAL HISTORY : None. SURGICAL HISTORY : CABG. Pacemaker. Aortic valve replacement. ENCOUNTER: Subsequent ACUITY: 1 day PAIN SCORE: 0/10 LOCATION: Bilateral chest FINDINGS: Pacemaker is in good position. The heart is enlarged. Sternal wires from previous mediastinum are n oted. Mild interstitial edema is evident. Shunt tube is coursing down the chest. CONCLUSION: Cardiomegaly with mild interstitial edema. Randell Vu MD FACR on January 01, 2017 at 9:06 Board Certified Radiologist. This report was verified electronically.
--- NOTE | 2017-01-01 10:21 | PD.CARD.PN ---
Subjective Subjective Remarks Feels well. No CP, dyspnea, dizziness, palpitation, headache, abdominal pain. Walking halls without difficulty. Objective Medications Item Value Date Time Aspirin 325 mg 12/31/16 1400 (Ecotrin Ec) DAILY/PO 01/01/17 0814 Hydrochlorothiazide 25 mg 12/31/16 1330 (Hydrodiuril) DAILY/PO 01/01/17 0814 Metoprolol 50 mg 12/28/16 2315 Tartrate BID/PO 01/01/17 0814 (Lopressor) Vital Signs / I&O Vital Signs Date Time Temp Pulse Resp B/P Pulse Ox O2 Delivery O2 Flow Rate FiO2 01/01/17 08:00 97.8 76 17 155/88 97 01/01/17 04:00 97.7 77 20 165/79 96 01/01/17 00:00 97.9 81 19 156/80 95 12/31/16 20:00 96.7 95 20 136/85 96 12/31/16 16:02 96.9 85 17 131/87 97 12/31/16 12:30 97.2 75 16 133/79 95 I/O 12/31/16 12/31/16 12/31/16 01/01/17 01/01/17 01/01/17 07:00 15:00 23:00 07:00 15:00 23:00 Intake Total 120 ml 360 ml 1372 ml 240 ml Output Total 250 ml 200 ml Balance -130 ml 360 ml 1172 ml 240 ml Intake Oral 120 ml 360 ml 240 ml 240 ml IV Total 1132 ml Output Urine Total 250 ml 200 ml # Voids 3 5 1 3 # Bowel Movements 0 0 0 1 Physical Exam GENERAL: Well developed, well nourished. No acute distress. HEENT: Jugular venous pressure is normal. CHEST: Lungs clear to auscultation bilaterally. Unlabored respiratory effort. CARDIAC: Regular rate and rhythm without S3, S4. II/ EPIFANIO base. Normal S2. ABDOMEN: Soft, nontender, no hepatosplenomegaly. Bowel sounds present. EXTREMITIES: No clubbing, cyanosis, edema. Laboratory Laboratory Tests Test 12/31/16 19:49 Procalcitonin 0.28 mg/mL Assessment and Plan Problem List: (1) Sepsis Assessment and Plan: RAMBO shows no vegetation on his AVR. There are echodensities on his pacemaker lead, unclear etiology, one of which is suggestive of vegetation though difficult to be certain from the images obtained. Rec pacer system extraction only if w/u reveals no other source of infection. If pacer extraction recommended by Dr. Min, rec consult Dr. Joseph. Will f/ u PRN. (2) CAD (coronary artery disease) Assessment and Plan: Possible history of inferoapical [place] by previous echo and nuclear stress test imaging. Stable. No definite angina. (3) History of aortic valve replacement (4) History of cardiac pacemaker (5) Hypertension Assessment and Plan: Suboptimal BP's. Rec resume his HCTZ. Consider resuming his Lisinopril. Code Status full code Discussed Condition With patient and Problem Qualifiers (1) Sepsis: Qualified Code: A41.9 - Sepsis, due to unspecified organism (2) CAD (coronary artery disease): Qualified Code: I25.10 - Coronary artery disease involving chitina coronary artery of chitina heart without angina pectoris (3) Hypertension: Qualified Code: I10 - Essential hypertension Nnamdi Goodwin MD Jan 01, 2017 10:21
--- NOTE | 2017-01-01 13:14 | HHI.PR ---
Subjective Remarks Follow-up for possible endocarditis at bedside, no complaints, no fever overnight, no chills. Denies any shortness of breath. No cough. Objective Vitals Vital Signs Date Time Temp Pulse Resp B/P Pulse Ox O2 Delivery O2 Flow Rate FiO2 01/01/17 08:00 97.8 76 17 155/88 97 01/01/17 04:00 97.7 77 20 165/79 96 01/01/17 00:00 97.9 81 19 156/80 95 12/31/16 20:00 96.7 95 20 136/85 96 12/31/16 16:02 96.9 85 17 131/87 97 I/O 12/31/16 12/31/16 12/31/16 01/01/17 01/01/17 01/01/17 07:00 15:00 23:00 07:00 15:00 23:00 Intake Total 120 ml 360 ml 1372 ml 240 ml Output Total 250 ml 200 ml Balance -130 ml 360 ml 1172 ml 240 ml Intake Oral 120 ml 360 ml 240 ml 240 ml IV Total 1132 ml Output Urine Total 250 ml 200 ml # Voids 3 5 1 3 # Bowel Movements 0 0 0 1 Result Diagram: 12/31/16 0230 12/31/16 0230 Objective Remarks GENERAL: Well-developed well-nourished morbidly obese. SKIN: Warm and dry. No lesions noted. HEENT: Normocephalic. Pupils equal and round. Mucous membranes pink and moist. CARDIOVASCULAR: Regular rate and rhythm. Systolic murmur appreciated. RESPIRATORY: No accessory muscle use. Clear to auscultation. Breath sounds equal bilaterally. GASTROINTESTINAL: Abdomen soft, non-tender, nondistended. Bowel sounds x4. MUSCULOSKELETAL: No obvious deformities. No clubbing or cyanosis. No edema. NEUROLOGICAL: Awake and alert. No focal neurological deficits. Moves upper and lower extremities spontaneously. Normal speech. Date of Insertion: Dec 28, 2016 Date of Removal: Dec 29, 2016 A/P Problem List: (1) Sepsis ICD Code: A41.9 Status: Acute (2) Ataxia ICD Code: R27.0 Status: Acute (3) Hypokalemia ICD Code: E87.6 Status: Acute (4) Meningioma ICD Code: D32.9 Status: Acute (5) DM (diabetes mellitus) ICD Code: E11.9 Status: Acute Assessment and Plan 66-year-old male with a PMH of Meningioma, Hydrocephalus s/p SQL BI DEVELOPER Shunt, AVR, HTN and DM who was brought to the ER by EMS secondary to ataxia and generalized weakness x1 day. Per , pt had fever of 101 last evening w/ complaints of generalized weakness and non-productive cough. Today, pt had recurrent febrile episode. noted pt to be diaphoretic, ataxic, "walking into rodriguez" and s/p nausea/vomiting x1, at which point she called EMS. Sepsis: HR 107, Temp 100.5, WBC 12.9, Source-unclear, ?SQL BI DEVELOPER Shunt Infection. Possible recurrence of Endocarditis. U/a negative. CXR w/ no acute findings. Blood Cultures with NGTD. Continue IV Vanc and Levaquin per infectious disease , afebrile overnight. For WBC tagged scan. Follow-up pro-calcitonin. Chest x- ray showed cardiomegaly and edema, patient however asymptomatic. Meningioma: Ataxia at admission. CT Head w/ bifrontal and right occipital encephalomalacia, ventricles mildly prominent, right parietal ventriculostomy catheter unchanged. S/p resection w/ Hydrocephalus s/p SQL BI DEVELOPER Shunt. Follows w/ Dr. Singh as outpatient, consulted, was unable to perform CSF culture/gram stain from Shunt. Follow up cultures. Continue broad spectrum IV Abx. Hx of Endocarditis: with 2 bio-prosthetic aortic valve replacements in 2011 due to endocarditis. Currently on Doxycycline, will continue. Consulted cardiology, performed RAMBO, cannot rule out pacer lead vegetation. Blood culture negative to date, WBC scan as above. CAD/HTN/HLD: chronic, continue patient's metoprolol, statin. Held ASA for procedure. Hypokalemia: K+ 3.0 s/p replacement. Give additional oral replacement. Replace phosphorus as well. Monitor. DM: Sliding scale w/ Accu-Checks. Hold Metformin for now in light of Sepsis. DVT Prophylaxis: SCD/Teds. Problem Qualifiers (1) Sepsis: Qualified Code: A41.9 - Sepsis, due to unspecified organism Festus Lindsey MD Jan 01, 2017 13:14
[2017-01-01 16:00] VITALS: BP 151/81; PULSE 85; RESP 19; TEMP 98.5; O2SAT 98
[2017-01-01 20:00] VITALS: BP 132/83; PULSE 85; RESP 17; TEMP 96.4; O2SAT 97
[2017-01-02] VITALS: BP 147/80; PULSE 96; RESP 16; TEMP 97.3; O2SAT 97
[2017-01-02] MEDS ORDERED: PHARMACY ORDERED LAB XX ONE (02:45)
[2017-01-02] MEDS: VANCOMYCIN INJ 2,250 MG in SODIUM CHLORID 0.9% 500 ML INJ 500 ML IV SCH ×2 (03:43→15:09)
[2017-01-02 04:00] VITALS: BP 148/80; PULSE 68; RESP 17; TEMP 95.7; O2SAT 95
[2017-01-02 04:08] LABS: VANCOMYCIN TROUGH 17.1 MCG/ML (5.0-10.0)
[2017-01-02] MEDS: INSULIN ASPART SUPPLEMENTAL SCALE SQ SCH ×4 (06:03→20:02)
[2017-01-02 08:00] VITALS: BP 164/63; PULSE 80; RESP 17; TEMP 96.5; O2SAT 94
[2017-01-02] MEDS: ASPIRIN EC 325 MG TABEC PO SCH (08:53)
[2017-01-02] MEDS: LACTATED RINGER'S 1000 ML IV SCH (08:53)
[2017-01-02] MEDS: METOPROLOL TARTRATE 50 MG TAB PO SCH ×2 (08:53→19:57)
[2017-01-02] MEDS: SODIUM CHLORIDE 0.9% FLUSH 5 ML FLUSH FLUSH SCH ×2 (08:53→20:30)
[2017-01-02] MEDS: HYDROCHLOROTHIAZIDE 25 MG TAB PO SCH (08:53)
[2017-01-02] MEDS: SODIUM CHLORID 0.9% 500 ML IV SCH ×2 (09:32→20:30)
--- NOTE | 2017-01-02 11:27 | RADRPT ---
EXAM DATE/TIME: 01/01/2017 12:56 [facility] COMPARISON: No previous studies available for comparison. INDICATIONS : Sepsis with fever. History of endocarditis in 2011. DOSE: 21.2 mCi Tc99m Ceretec labeled white blood cells IV PLANAR IMAGIN min, 3 hrs, 20 hrs MEDICAL HISTORY : Cardiovascular disease. Diabetes mellitus type 2. SURGICAL HISTORY : Pacemaker. Splenectomy. Umbilical hernia repair. November 2011 MANAGER NEWS shunt placement, replacement of bon e flap with cranioplasty ENCOUNTER: Subsequent ACUITY: 4 - 6 days PAIN SCALE: 0/10 LOCATION: TECHNIQUE: Following the in vitro labeling of autologous white cells and reinjection, whole body scan was perfor med at specified times. FINDINGS: There is no abnormal biodistribution of radiotracer. CONCLUSION: 1. Negative white cell scan Jaime Cali MD on January 02, 2017 at 11:20 Board Certified Radiologist. This report was verified electronically.
[2017-01-02 12:00] VITALS: BP 137/78; PULSE 71; RESP 16; TEMP 96.8; O2SAT 94
--- NOTE | 2017-01-02 13:08 | HHI.IDPN ---
Subjective Subjective Remarks Notes reviewed No fever. Last fever 12/31 at midnight Off doxycyline, last dose given 12/30, no dode 12/31, 01/01 WBC scan negative Feels good No new complaints CXR no consolidation All BC negative so far. Had RAMBO - valves ok, has an abnormality at pacer lead ESR 10 CRP 10 Procalcitonin - 0.28 (low risk) Antibiotics Vancomycin Lines PIV Past Medical History Past Medical History CAD Meningioma, had resection 10/2011 Diabetes Hyperlipidemia Previous history of nonsustained ventricular tachycardia Aortic valve endocarditis with MSSA in 2011 Past Surgical History S/P AVR, January 2012, redo-AVR March 2012, porcine AVR Pacemaker April 2012, ?complete heart block October 2011 resection of the meningioma November 2011 SUTURE WINDER HAND shunt placement, followed by replacement of bone flap with cranioplasty Splenectomy Umbilical hernia repair Allergies: Coded Allergies: Dilantin (Verified Allergy, Severe, Rash, 06/06/16) Uncoded Allergies: STATIN DRUGS (Adverse Reaction, Severe, 11/12/12) Objective . Vital Signs Date Time Temp Pulse Resp B/P Pulse Ox O2 Delivery O2 Flow Rate FiO2 01/02/17 08:00 96.5 80 17 164/63 94 01/02/17 04:00 95.7 68 17 148/80 95 01/02/17 00:00 97.3 96 16 147/80 97 01/01/17 20:00 96.4 85 17 132/83 97 01/01/17 16:00 98.5 85 19 151/81 98 01/01/17 01/01/17 01/02/17 15:00 23:00 07:00 Intake Total 240 ml 873 ml 1080 ml Balance 240 ml 873 ml 1080 ml Intake Oral 240 ml 240 ml 580 ml IV Total 633 ml 500 ml # Voids 3 3 # Bowel Movements 0 . Laboratory Tests Test 12/31/16 01/02/17 19:49 03:27 Procalcitonin 0.28 mg/mL Creatinine 0.81 MG/DL Estimat Glomerular Filtration 95 ML/MIN Rate Microbiology Date/Time Procedure Status Source Growth 12/31/16 02:30 Aerobic Blood Culture - Preliminary Resulted Blood Peripheral NO GROWTH IN 2 DAYS 12/31/16 02:30 Anaerobic Blood Culture - Preliminary Resulted Blood Peripheral NO GROWTH IN 2 DAYS 12/31/16 02:45 Aerobic Blood Culture - Preliminary Resulted Blood Peripheral NO GROWTH IN 2 DAYS 12/31/16 02:45 Anaerobic Blood Culture - Preliminary Resulted Blood Peripheral NO GROWTH IN 2 DAYS Imaging Last Impressions Head CT 12/28/16 1847 Signed Impressions: Service Date/Time: Wednesday, December 28, 2016 19:28 - CONCLUSION: Bifrontal and right occipital encephalomalacia. Ventricles are mildly prominent. Right parietal ventriculostomy catheter unchanged. Juan Howell MD Chest X-Ray 12/28/16 1821 Signed Impressions: Service Date/Time: Wednesday, December 28, 2016 18:54 - CONCLUSION: Cardiomegaly and previous CABG. Left basilar scarring.. Juan Howell MD Physical Exam GENERAL: awake and alert, NAD SKIN: Warm skin, moist, no generalized rash, no ecchymoses, no embolic lesions. HEAD: SUTURE WINDER HAND shunt site on the right side of the head with no tenderness or redness EYES: [place] conjunctivae, no petechia or hemorrhage. No scleral icterus. ENT: Moist oral mucosa. Throat without erythema, or exudate. Uvula midline. Airway patent. NECK: Trachea midline. No JVD or lymphadenopathy. Supple, nontender, no meningeal signs. CARDIOVASCULAR: Regular rate and rhythm , has murmur heard best at base, no rub. healed sternotomy incision. Pacer in L upper chest with no evidence of infection RESPIRATORY: Clear to auscultation. Breath sounds equal bilaterally. No wheezes , rales, or rhonchi. Decreased BS at the bases GASTROINTESTINAL: Abdomen obese, soft, non-tender, nondistended. Bowel sounds are present and normoactive. There is a reducible umbilical hernia. MUSCULOSKELETAL: Extremities without clubbing, cyanosis, or edema. No calf tenderness. Negative Homans sign bilaterally. No peripheral embolic lesions noted. 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
[2017-01-02] MEDS: DICLOXACILLIN SODIUM 250 MG CAP PO SCH ×2 (15:09→19:57)
--- NOTE | 2017-01-02 15:48 | HHI.PR ---
Subjective Remarks Follow-up for infection Afebrile, no shortness of breath, feels good, no pain. No area, nausea or vomiting. Objective Vitals Vital Signs Date Time Temp Pulse Resp B/P Pulse Ox O2 Delivery O2 Flow Rate FiO2 01/02/17 12:00 96.8 71 16 137/78 94 01/02/17 08:00 96.5 80 17 164/63 94 01/02/17 04:00 95.7 68 17 148/80 95 01/02/17 00:00 97.3 96 16 147/80 97 01/01/17 20:00 96.4 85 17 132/83 97 01/01/17 16:00 98.5 85 19 151/81 98 I/O 01/01/17 01/01/17 01/01/17 01/02/17 01/02/17 01/02/17 07:00 15:00 23:00 07:00 15:00 23:00 Intake Total 240 ml 240 ml 873 ml 1080 ml 960 ml Balance 240 ml 240 ml 873 ml 1080 ml 960 ml Intake Oral 240 ml 240 ml 240 ml 580 ml 960 ml IV Total 633 ml 500 ml # Voids 3 3 3 5 # Bowel Movements 1 0 1 Result Diagram: 12/31/16 0230 01/02/17 0327 Objective Remarks GENERAL: Well-developed well-nourished morbidly obese. SKIN: Warm and dry. No lesions noted. HEENT: Normocephalic. Pupils equal and round. Mucous membranes pink and moist. CARDIOVASCULAR: Regular rate and rhythm. Systolic murmur appreciated. RESPIRATORY: No accessory muscle use. Clear to auscultation. Breath sounds equal bilaterally. GASTROINTESTINAL: Abdomen soft, non-tender, nondistended. Bowel sounds x4. MUSCULOSKELETAL: No obvious deformities. No clubbing or cyanosis. No edema. NEUROLOGICAL: Awake and alert. No focal neurological deficits. Moves upper and lower extremities spontaneously. Normal speech. Date of Insertion: Dec 28, 2016 Date of Removal: Dec 29, 2016 A/P Problem List: (1) Sepsis ICD Code: A41.9 Status: Acute (2) Ataxia ICD Code: R27.0 Status: Acute (3) Hypokalemia ICD Code: E87.6 Status: Acute (4) Meningioma ICD Code: D32.9 Status: Acute (5) DM (diabetes mellitus) ICD Code: E11.9 Status: Acute Assessment and Plan 66-year-old male with a PMH of Meningioma, Hydrocephalus s/p MILLING OPERATOR Shunt, AVR, HTN and DM who was brought to the ER by EMS secondary to ataxia and generalized weakness x1 day. Per , pt had fever of 101 last evening w/ complaints of generalized weakness and non-productive cough. Today, pt had recurrent febrile episode. noted pt to be diaphoretic, ataxic, "walking into rodriguez" and s/p nausea/vomiting x1, at which point she called EMS. Sepsis: HR 107, Temp 100.5, WBC 12.9, Source-unclear, ?MILLING OPERATOR Shunt Infection. Possible recurrence of Endocarditis. U/a negative. CXR w/ no acute findings. Blood Cultures with NGTD. Continue IV Vanc and Levaquin per infectious disease , afebrile overnight. For WBC tagged scan. Follow-up pro-calcitonin. Chest x- ray showed cardiomegaly and edema, patient however asymptomatic. Meningioma: Ataxia at admission. CT Head w/ bifrontal and right occipital encephalomalacia, ventricles mildly prominent, right parietal ventriculostomy catheter unchanged. S/p resection w/ Hydrocephalus s/p MILLING OPERATOR Shunt. Follows w/ Dr. Singh as outpatient, consulted, was unable to perform CSF culture/gram stain from Shunt. Continue broad spectrum IV Abx. Discussed with infectious disease. Hx of Endocarditis: with 2 bio-prosthetic aortic valve replacements in 2011 due to endocarditis. Drug fever could be from doxycycline, stop doxycycline, finish vancomycin. Blood culture negative to date, WBC scan as above. Start Dicloxacillin 500 BID, if still afebrile tomorrow, may go home. CAD/HTN/HLD: chronic, continue patient's metoprolol, statin. Held ASA for procedure. Hypokalemia: K+ 3.0 s/p replacement. Give additional oral replacement. Replace phosphorus as well. Monitor. DM: Sliding scale w/ Accu-Checks. Hold Metformin for now in light of Sepsis. DVT Prophylaxis: SCD/Teds. Problem Qualifiers (1) Sepsis: Qualified Code: A41.9 - Sepsis, due to unspecified organism Festus Lindsey MD Jan 02, 2017 15:48
[2017-01-02 16:00] VITALS: BP 129/83; PULSE 66; RESP 17; TEMP 96.7; O2SAT 97
[2017-01-02 20:39] VITALS: BP 131/88; PULSE 100; RESP 18; TEMP 96.8; O2SAT 99
[2017-01-03 00:09] VITALS: BP 148/76; PULSE 68; RESP 18; TEMP 96.4; O2SAT 99
[2017-01-03 04:15] VITALS: BP 155/78; PULSE 80; RESP 20; TEMP 96.4; O2SAT 95
[2017-01-03] MEDS: INSULIN ASPART SUPPLEMENTAL SCALE SQ SCH ×2 (06:20→11:00)
[2017-01-03 08:00] VITALS: BP 141/69; PULSE 77; RESP 19; TEMP 97.8; O2SAT 96
[2017-01-03] MEDS: SODIUM CHLORIDE 0.9% FLUSH 5 ML FLUSH FLUSH SCH (08:07)
[2017-01-03] MEDS: LACTATED RINGER'S 1000 ML IV SCH (08:07)
[2017-01-03] MEDS: HYDROCHLOROTHIAZIDE 25 MG TAB PO SCH (08:07)
[2017-01-03] MEDS: ASPIRIN EC 325 MG TABEC PO SCH (08:07)
[2017-01-03] MEDS: METOPROLOL TARTRATE 50 MG TAB PO SCH (08:07)
[2017-01-03] MEDS: DICLOXACILLIN SODIUM 250 MG CAP PO SCH (08:07)
[2017-01-03 12:00] VITALS: BP 163/82; PULSE 61; RESP 20; TEMP 97.9; O2SAT 96
[2017-01-03] MEDS ORDERED: DICL250 PO (13:56)
--- NOTE | 2017-01-03 15:42 | HHI.DS ---
Discharge Summary Admission Date Dec 28, 2016 at 20:44 Discharge Date: Jan 03, 2017 Admitting Diagnosis fever, leukocytosis (1) Sepsis ICD Code: A41.9 Diagnosis: Principal (2) Ataxia ICD Code: R27.0 Diagnosis: Secondary (3) Hypokalemia ICD Code: E87.6 Diagnosis: Secondary (4) Meningioma ICD Code: D32.9 Diagnosis: Secondary (5) DM (diabetes mellitus) ICD Code: E11.9 Diagnosis: Secondary (6) History of aortic valve replacement ICD Code: Z95.2 Procedures none Brief History - From Admission This is a 66-year-old male with a PMH of Meningioma, Hydrocephalus s/p CLIENT APPLICATION SUPPORT SPECIALIST Shunt , AVR, HTN and DM who was brought to the ER by EMS secondary to ataxia and generalized weakness x1 day. Per , pt had fever of 101 last evening w/ complaints of generalized weakness and non-productive cough. Today, pt had recurrent febrile episode. noted pt to be diaphoretic, ataxic, "walking into rodriguez" and s/p nausea/vomiting x1, at which point she called EMS. On arrival, BP 128/63, HR 94, O2 sat 98% on RA, Temp 100.5. WBC 12.9. K+ 3.2. Lactic Acid 1.7. CXR with cardiomegaly. CT Head bifrontal and right occipital encephalomalacia, ventricles are mildly prominent, right parietal ventriculostomy catheter unchanged. S/p Blood Cultures, Vanc/Cefepime in ER. Pt follows w/ Dr. Singh as outpatient, Dr. Singh consulted by ER physician, recommended CSF culture from Shunt. Follows w/ Dr. Blancas for Cardiology. CBC/BMP: 12/31/16 0230 01/02/17 0327 Significant Findings Laboratory Tests Test 01/02/17 03:27 Vancomycin Level Trough 17.1 MCG/ML (5.0-10.0) PE at Discharge GENERAL: Well-developed well-nourished morbidly obese. SKIN: Warm and dry. No lesions noted. HEENT: Normocephalic. Pupils equal and round. Mucous membranes pink and moist. CARDIOVASCULAR: Regular rate and rhythm. Systolic murmur appreciated. RESPIRATORY: No accessory muscle use. Clear to auscultation. Breath sounds equal bilaterally. GASTROINTESTINAL: Abdomen soft, non-tender, nondistended. Bowel sounds x4. MUSCULOSKELETAL: No obvious deformities. No clubbing or cyanosis. No edema. NEUROLOGICAL: Awake and alert. No focal neurological deficits. Moves upper and lower extremities spontaneously. Normal speech. Pt update on day of discharge Afebrile, still feels good, no cough, shortness of breath, diarrhea or abdominal pain. Hospital Course 66-year-old male with a PMH of Meningioma, Hydrocephalus s/p CLIENT APPLICATION SUPPORT SPECIALIST Shunt, AVR, HTN and DM who was brought to the ER by EMS secondary to ataxia and generalized weakness x1 day associated with fever and nonproductive cough. Patient was treated as a case of sepsis of unknown source. Possible etiology were CLIENT APPLICATION SUPPORT SPECIALIST shunt infection and recurrence of endocarditis. U/a negative. CXR w/ no acute findings. Blood Cultures with NGTD. Start empirically on vancomycin and cefepime. Patient had extensive workup done, WBC tagged scan was negative, Propulsid changes or were negative. Chest x-ray showed cardiomegaly and edema , patient however asymptomatic. Because of paucity of symptoms, it was thought that it could be drug fever from doxycycline. CT Head w/ bifrontal and right occipital encephalomalacia, ventricles mildly prominent, right parietal ventriculostomy catheter unchanged. S/p resection w/ Hydrocephalus s/p CLIENT APPLICATION SUPPORT SPECIALIST Shunt. Follows w/ Dr. Singh as outpatient, consulted, was unable to perform CSF culture/gram stain from Shunt. Decision was made to stop doxycycline as possible cause of drug fever. Vancomycin was stopped. Patient remained asymptomatic and afebrile. Patient will be switched to dicloxacillin for lifelong lifelong suppression. He will be given 1 month's worth of dicloxacillin. If patient starts having fever again, he was instructed to get her with the to come back to the hospital. At that point, he might need pacemaker lead removal. He will resume his home medications for diabetes and hypertension. Case was discussed with infectious disease prior to discharge. Pt Condition on Discharge: Good Discharge Disposition: Discharge Home Discharge Time: > 30 minutes Discharge Instructions DIET: Follow Instructions for: Heart Healthy Diet Activities you can perform: Regular-No Restrictions Follow up Referrals: PCP Follow-up - 2 Weeks New Medications: Dicloxacillin (Dicloxacillin) 250 Mg Cap 500 MG PO BID antibiotic #60 CAP Continued Medications: Aspirin (Aspirin) 325 Mg Tab 325 MG PO DAILY #30 Ref 0 TAB Hydrochlorothiazide (Hydrochlorothiazide) 25 Mg Tab 25 MG PO DAILY #30 Ref 0 TAB Metformin (Metformin) 1,000 Mg Tab 1000 MG PO BIDPC With meals Blood Sugar Management #60 Ref 0 TAB Metoprolol Tartrate (Metoprolol Tartrate) 50 Mg Tab 50 MG PO BID #60 Ref 0 TAB Rosuvastatin (Crestor) 5 Mg Tab 5 MG PO HS Cholesterol Management #30 Ref 0 TAB Discontinued Medications: Doxycycline Hyclate (Doxycycline Hyclate) 100 Mg Cap 200 MG PO HS Infection Ref 0 CAP Festus Lindsey MD Jan 03, 2017 15:42
== END 2017-01-03 14:59 | disposition home or self-care (01) | DRG 872 ==
LOC: NEPC 17:53 → NEDA 20:44 → N07B 12-29 00:15
PROVIDERS: ADMIT Hospitalist; ATTEND Hospitalist
PROC: 8C01X6J Collection of Cerebrospinal Fluid from Indwelling Device in Nervous System (ICD-10-PCS; principal; 2016-12-29)
DX: A41.9 Sepsis, unspecified organism (principal); I47.2 Ventricular tachycardia; G91.9 Hydrocephalus, unspecified; Z68.41 Body mass index [BMI] 40.0-44.9, adult; E87.6 Hypokalemia; R27.0 Ataxia, unspecified; I10 Essential (primary) hypertension; E66.01 Morbid (severe) obesity due to excess calories; E11.9 Type 2 diabetes mellitus without complications; E78.5 Hyperlipidemia, unspecified; I25.10 Atherosclerotic heart disease of native coronary artery without angina pectoris; Z98.2 Presence of cerebrospinal fluid drainage device; Z95.2 Presence of prosthetic heart valve; Z95.1 Presence of aortocoronary bypass graft; Z95.0 Presence of cardiac pacemaker; Z79.84 Long term (current) use of oral hypoglycemic drugs; I25.2 Old myocardial infarction
CPT/HCPCS: 51702; 70450; 71010; 71020; 76937; 78806; 80048; 80053; 80069; 80202; 81001; 82150; 82550; 82565; 82948; 83605; 83690; 83735; 84145; 84484; 85025; 85610; 85652; 85730; 86140; 87040; 87804; 93005; 93312; 93320; 93325; 96365; A9569; J0692; J1815; J3370; J3480; J7030; J7040

== ENCOUNTER → 2017-06-23 | Outpatient (CLI) | payer MEDICARE ==
[~2017-06-23] MED LIST changes: +AMLO5TAB2; +ASPI325T PO; -ASPI81TA11 OR; +DICL250 PO; -DOXY150C OR; +GADODIAMIDE PF 287 MG/ML 5 ML VIAL (for RAD MRI) IV PUSH ONE; -HYDR-2768 PO; +HYDR25TA5 PO; -LISI-360 PO; +LISI-515; +METF1000 PO; -METF500 PO; +ROSU10; -ROSU40 PO; +ROSU5 PO
[2017-06-23 11:05] VITALS: BP 156/63; PULSE 86; RESP 16; TEMP 98.5; O2SAT 98
--- NOTE | 2017-06-23 12:45 | RADRPT ---
EXAM DATE/TIME: 06/23/2017 11:32 [facility] COMPARISON: MRI BRAIN W & W/O CONTRAST, June 06, 2016, 13:45. INDICATIONS : Mass. Benign mass. CONTRAST: 25 cc Omniscan (gadodiamide) IV MEDICAL HISTORY : Hypertension. Diabetes mellitus type 2. SURGICAL HISTORY : Pacemaker. Splenectomy. Brain shunt. Tumor removal. ENCOUNTER: Sequela ACUITY: > 1 year PAIN SCORE: 0/10 LOCATION: [facility] TECHNIQUE: Multiplanar, multisequence MRI of the brain was performed both prior to and following the administrat ion of paramagnetic contrast. FINDINGS: CEREBRUM: Extensive encephalomalacia changes involve the frontal lobes bilaterally. Enhancing mass lesion is se en in the region of the cribriform plate extending up into the upper ethmoid sinuses. There also appe ars to be some involvement of the upper ethmoid air cells and the left sphenoid wing. There is actual ly a tongue of enhancing tissue extending from the mass cephalad up to the falx region. This is uncha nged. Abnormally thickened and enhancing dura in the region of the anterior aspect of the right tempo ral lobe. Linear tract of encephalomalacia through the posterior right parietal region could represen t the prior shunt tract. 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 WHITE MATTER: Vasogenic type edema in the frontal lobes bilaterally POSTERIOR FOSSA: The cerebellum and brainstem are intact. The 4th ventricle is midline. The cerebellopontine angle is unremarkable. The cerebellar tonsils are normal in position. DIFFUSION IMAGING: No focal areas of restricted diffusion are seen. No evidence of acute infarction. EXTRACRANIAL: The visualized portions of the orbits and paranasal sinuses are unremarkable. POST-CONTRAST: Enhancing mass lesion in the cribriform plate with a tongue of tissue extending from the mass to the anterior aspect of the falx. There is also some leptomeningeal enhancement anteriorly in the right mi ddle cranial fossa. CONCLUSION: 1. Stable enhancing mass lesion centered on the cribriform plate with cephalad extension towards the anterior aspect of the falx. There is extension into the left wing of the sphenoid. There is also st able enhancement and thickening along the anterior tip of the right temporal lobe characteristic of l eptomeningeal spread/metastasis. 2. Stable leptomeningeal thickening and enhancement in the anterior aspect of the right temporal lobe . 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 3. Extensive encephalomalacia changes in both frontal lobes may be postsurgical. There findings of ol d infarct in the right occiput and medial aspect of the left temporal lobe. 4. No significant change from prior Tone Kruse MD on June 23, 2017 at 12:32 Board Certified Radiologist. This report was verified electronically.
== END ==
LOC: HRAD 10:33
PROVIDERS: ATTEND Radiology Radiation Oncology
DX: D33.2 Benign neoplasm of brain, unspecified (principal)
CPT/HCPCS: 70553; A9579

== ENCOUNTER 2018-10-24 20:14 | Inpatient (IN) ==
[2018-10-24] MEDS: Heparin Drip 25,000 UNIT/250 ML BAG IV.CONT PRN (22:52)
[2018-10-25] MEDS ORDERED: Acetaminophen 325 MG Tablet PO PRN (01:52)
[2018-10-25] MEDS ORDERED: Dextrose 50% in Water 50 ML Vial IV.PUSH PRN ×2 (01:58→11:52)
--- NOTE | 2018-10-25 02:01 | P.HPIM ---
History of Present Illness Service: [facility] Primary Care Physician: UNKNOWN Chief Complaint: dysnea History of Present Illness: 67 y/o male with a histroy of DM, medtronic pacemaker, brain tumor s/p shunt, AVR x2, and endocarditis presented to the ED with complaints of shortness of breath and cough. He states he has been having increasing shortness of breath for the past 2 days with a cough and with neck and shoulder pain. He denies any substernal chest pain, fever or chills. He does not wear o2 at home, no history of chf or copd. He does have bilateral lower extremity edema that he states started with taking amlodipine. Operational Trainer: Dr. Dumont Neurosurgeon: Dr. Singh Inpatient Certification Inpatient Certification: I certify that the inpatient services were ordered in accordance with Medicare regulations governing the order. This includes certification that hospital inpatient services are reasonable and necessary and in the case of services not specified as inpatient-only under 42 CFR 419.22(n), that they are appropriately provided as inpatient services in accordance to with the 2-midnight benchmark under 43 CFR 412.3(e) Estimated Total Length of Stay (Days): 2 Plans for Post Hospital Care: Home Review of Systems Review of Systems: all other systems reviewed are negative FOR[facility]LY [facility] Medical History Medical History Brain tumor (benign) (Acute) DVT (deep venous thrombosis) (Acute) Pacemaker (Acute) Type 2 diabetes mellitus (Acute) Umbilical hernia (Acute) Surgical History Surgical History Aortic valve replaced (Acute) H/O splenectomy (Acute) History of ankle surgery (Acute) Family History Family History Other Heart disease Social History Social History Substance History: No History of Abuse Second Hand Smoke Exposure: No Smoking Status: Former smoker Tobacco Type: Cigarettes How Often Do You Have a Drink Containing Alcohol: Monthly or less Immunization History Tetanus Immunization: Unsure Hx Influenza Vaccine This Season: Yes Medications and Allergies Allergies Allergy/AdvReac Type Severity Reaction Status Date / Time phenytoin Allergy Severe Rash Verified 10/25/18 01:39 [id number] Reductase Allergy Severe "raises Verified 10/25/18 01:39 Inhibitor kidney function" atorvastatin [From Lipitor] Allergy Rash Verified 10/25/18 03:01 metformin AdvReac Severe abdominal Verified 10/25/18 01:39 pain Home Medications Medication Instructions Recorded Confirmed Type amlodipine 5 mg PO DAILY 10/24/18 10/25/18 History aspirin 325 mg PO DAILY 10/24/18 10/25/18 History dicloxacillin 500 mg PO BID 10/24/18 10/25/18 History furosemide [Lasix] 20 mg PO DAILY 10/24/18 10/25/18 History glipizide [Glucotrol] 5 mg PO BID 10/24/18 10/25/18 History hydrochlorothiazide 25 mg PO DAILY 10/24/18 10/25/18 History lisinopril 20 mg PO DAILY 10/24/18 10/25/18 History metoprolol tartrate 75 mg PO BID 10/24/18 10/25/18 History potassium chloride 10 meq PO DAILY 10/24/18 10/25/18 History rosuvastatin [Crestor] 10 mg PO DAILY 10/24/18 10/25/18 History Active Medications: Active Medications Acetaminophen (Tylenol) 650 mg PO Q4H PRN PRN Reason: Temp > 100.4 Heparin Sodium/Dextrose (Heparin/D5w 25,000 U/250 Ml) 25,000 unit in 250 mls @ 0 mls/hr IV.CONT TITRATE PRN; Protocol PRN Reason: Per Protocol Ondansetron HCl (Zofran Inj) 4 mg IV.PUSH Q6H PRN PRN Reason: NAUSEA OR VOMITING Sodium Chloride (Ns Flush) 2 ml IV.FLUSH PRN PRN PRN Reason: FLUSH AFTER USING IV ACCESS Sodium Chloride (Ns Flush) 2 ml IV.FLUSH BID SHILA Physical Exam Vital signs: Last Vital Signs Temp 99.7 F H 10/25/18 01:56 Pulse 122 H 10/25/18 01:56 Resp 28 H 10/25/18 01:56 BP 118/66 10/25/18 01:56 Pulse Ox 95 10/25/18 01:56 Narrative: GENERAL: well nourished on 2 L NC, purse lipped breathing SKIN: Warm and dry. EYES: No scleral icterus. No injection or drainage. NECK: Supple, trachea midline. No JVD or lymphadenopathy. CARDIOVASCULAR: tachycardic rate and rhythm without murmurs, gallops, or rubs. RESPIRATORY: Diminished in bases, no crackles, no wheezes GASTROINTESTINAL: Abdomen soft, non-tender, nondistended. umbilical hernia MUSCULOSKELETAL: No cyanosis, or edema. Caprini VTE Risk Assessment Caprini VTE Risk Assessment: Moderate/High Risk (score >= 2) Caprini Risk Assessment Model: Point Value = 1 Point Value = 2 Point Value = 3 Point Value = 5 Age 41-60 Minor surgery BMI > 25 kg/m2 Swollen legs Varicose veins or History of unexplained or recurrent spontaneous Oral contraceptives or hormone replacement Sepsis (< 1 month) Serious lung disease, including pneumonia (< 1 month) Abnormal pulmonary function Acute myocardial infarction Congestive heart failure (< 1 month) History of inflammatory bowel disease Medical patient at bed rest Age 61-74 Arthroscopic surgery Major open surgery (> 45 min) Laparoscopic surgery (> 45 min) Malignancy Confined to bed (> 72 hours) Immobilizing plaster cast Central venous access Age >= 75 History of VTE Family history of VTE Factor V Leiden Prothrombin [id number] Lupus anticoagulant Anticardiolipin antibodies Elevated serum homocysteine Heparin-induced thrombocytopenia Other congenital or acquired thrombophilia Stroke (< 1 month) Elective arthroplasty Hip, pelvis, or leg fracture Acute spinal cord injury (< 1 month) Prophylaxis Regimen: Total Risk Factor Score Risk Level Prophylaxis Regimen 0-1 Low Early ambulation 2 Moderate Order ONE of the following: *Sequential Compression Device (SCD) *Heparin 5000 units SQ BID 3-4 Higher Order ONE of the following medications: *Heparin 5000 units SQ TID *Enoxaparin/Lovenox 40 mg SQ daily (WT < 150 kg, CrCl > 30 mL/min) *Enoxaparin/Lovenox 30 mg SQ daily (WT < 150 kg, CrCl > 10-29 mL/min) *Enoxaparin/Lovenox 30 mg SQ BID (WT < 150 kg, CrCl > 30 mL/min) AND/OR *Sequential Compression Device (SCD) 5 or more Highest Order ONE of the following medications: *Heparin 5000 units SQ TID (Preferred with Epidurals) *Enoxaparin/Lovenox 40 mg SQ daily (WT < 150 kg, CrCl > 30 mL/min) *Enoxaparin/Lovenox 30 mg SQ daily (WT < 150 kg, CrCl > 10-29 mL/min) *Enoxaparin/Lovenox 30 mg SQ BID (WT < 150 kg, CrCl > 30 mL/min) AND *Sequential Compression Device (SCD) Assessment and Plan Plan 67 y/o male with a history of DM, medtronic pacemaker, brain tumor s/p shunt, AVR x2, and endocarditis presented to the ED with complaints of shortness of breath and cough. Elevated troponin, troponin .27, likely related to kidney injury, r/o ACS Questionable chf, bnp 158 D Dimer 1.8, CTA negative for PE Chest xr reviewed and shows a mild increased interstitial markings bilaterally consistent with probable mild pulmonary vascular congestion -Trend troponin Q6H -Heparin drip -Consult cardiology for evaluation -2 d echo ordered -Cont Lasix IV 20mg BID, 40mg IV given in ER -Cont home Metoprol, dose given now -NPO Acute kidney injury Creatine 1.4 -Trend creatine -avoid nephrotoxins -Hold home lisinopril and HCTZ -Consider kidney US if no improvement DM, chronic -Accu checks with SSI Endocarditis, chronic -Cont home antibiotics DVT prophylaxis: Heparin H&P: Quality VTE Deep Vein Thrombosis/Pulmonary Embolism Present on Admission: Yes
[2018-10-25] MEDS: Metoprolol Tartrate 50 MG Tablet PO SCH ×3 (02:42→20:27)
[2018-10-25 06:46] LABS: Baso # (Auto) 0.1 th/mm3 (0.0-0.2); Baso % (Auto) 0.7 % (0.0-2.0); Hematocrit 45.4 % (39.0-51.0); Hemoglobin 15.5 gm/dL (13.0-17.0); Lymph # (Auto) 1.4 th/mm3 (1.0-4.8); Mean Corpuscular HGB Conc 34.1 % (32.0-36.0); Mean Corpuscular Volume 82.2 fL (80.0-100.0); Mean Platelet Volume 9.4 fL (7.0-11.0); Mono % (Auto) 11.2 % (0.0-8.0); Neut # (Auto) 6.4 th/mm3 (1.8-7.7); Neut % (Auto) 72.1 % (16.0-70.0); Platelet Count 266 th/mm3 (150-450); Red Blood Count 5.52 mil/mm3 (4.50-5.90); Red Cell Distribution Width 15.5 % (11.6-17.2); White Blood Count 8.8 th/mm3 (4.0-11.0)
[2018-10-25 07:14] LABS: Calcium 8.6 mg/dL (8.5-10.1); Carbon Dioxide 28.9 meq/L (21.0-32.0); Troponin I 0.21 ng/mL (0.02-0.05)
[2018-10-25 07:20] LABS: Potassium 2.9 meq/L (3.5-5.1)
[2018-10-25 07:35] LABS: CKMB Percent 0.5 % (0.0-4.0); Creatine Kinase MB 3.2 ng/mL (0.5-3.6)
[2018-10-25] MEDS: Potassium Chlor 20 mEq Premix 20 MEQ/100 ML PIGGYBACK IV.SIG SCH ×2 (08:47→11:48)
[2018-10-25] MEDS ORDERED: Furosemide 20 MG Tablet PO SCH (09:00)
--- NOTE | 2018-10-25 11:56 | P.PNADD ---
Addendum to Inpatient Note Reason for Addendum: Additional Documentation Additional information: Follow-up non-ST elevation OK Patient seen and examined, still complains of substernal chest pain rated 5 out of 10 in intensity with radiation to his neck Currently on heparin drip pending evaluation from cardiology Will start low sliding scale insulin
[2018-10-25] MEDS: Insulin NovoLOG Aspart Correctional Sugar Inj SQ SCH ×3 (12:20→20:29)
[2018-10-25 15:22] LABS: Troponin I 0.08 ng/mL (0.02-0.05)
[2018-10-25 15:34] LABS: CKMB Percent 0.5 % (0.0-4.0); Creatine Kinase MB 2.3 ng/mL (0.5-3.6)
--- NOTE | 2018-10-25 15:47 | ECHRPT ---
Indication: Heart failure, unspecified CONCLUSIONS The left ventricular systolic function is low normal with an estimated ejection fraction in the rang e of 50- 55%. Wall thickness is normal. Normal left ventricular size. BP: / HR: Rhythm: Other MEASUREMENTS (Male / Female) Normal Values Technical Quality:Fair 2D ECHO LV Diastolic Diameter PLAX 5.1 cm 4.2 - 5.9 / 3.9 - 5.3 cm LV Systolic Diameter PLAX 4.0 cm IVS Diastolic Thickness 1.2 cm 0.6 - 1.0 / 0.6 - 0.9 cm LVPW Diastolic Thickness 1.2 cm 0.6 - 1.0 / 0.6 - 0.9 cm LV Relative Wall Thickness 0.5 LVOT Diameter 2.0 cm M-MODE Aortic Root Diameter MM 2.5 cm LA Systolic Diameter MM 4.3 cm LA Ao Ratio MM 1.7 AV Cusp Separation MM 2.0 cm DOPPLER AV Peak Velocity 177.0 cm/s AV Peak Gradient 12.5 mmHg LVOT Peak Velocity 94.8 cm/s LVOT Peak Gradient 3.6 mmHg AV Area Cont Eq pk 1.7 cm Mitral E Point Velocity 96.3 cm/s Mitral A Point Velocity 93.8 cm/s Mitral E to A Ratio 1.0 LV E' Lateral Velocity 5.4 cm/s Mitral E to LV E' Lateral Ratio 18.0 LV E' Septal Velocity 4.9 cm/s Mitral E to LV E' Septal Ratio 19.8 PV Peak Velocity 105.0 cm/s PV Peak Gradient 4.4 mmHg FINDINGS LEFT VENTRICLE The left ventricular systolic function is low normal with an estimated ejection fraction in the rang e of 50- 55%. Wall thickness is normal. Normal left ventricular size. RIGHT VENTRICLE Normal right ventricular size and systolic function. LEFT ATRIUM The left atrial size is normal. RIGHT ATRIUM The right atrial size is normal. ATRIAL SEPTUM Normal atrial septal thickness without atrial level shunting by limited color doppler interrogation. AORTA The aortic root and proximal ascending aorta are normal in size on limited imaging. MITRAL VALVE Structurally normal mitral valve. No mitral valve stenosis or regurgitation. AORTIC VALVE Trileaflet aortic valve. No aortic valve stenosis or regurgitation. TRICUSPID VALVE Structurally normal tricuspid valve. No tricuspid valve stenosis or regurgitation. PULMONARY VALVE The pulmonary valve is not well visualized. VESSELS The inferior vena cava is normal in size. PERICARDIUM No pericardial effusion. Alex Collins MD, FACC, FSCAI (Electronically Signed) Final Date:25 October 2018 15:46
[2018-10-25] MEDS ORDERED: Heparin 10,000 UNITS/10 ML Vial (for IV use) IV.PUSH PRN (18:15)
[2018-10-25] MEDS: Heparin 10,000 UNITS/10 ML Vial (for IV use) IV.PUSH PRN (18:27)
[2018-10-25] MEDS: Heparin Drip 25,000 UNIT/250 ML BAG IV.CONT PRN (18:27)
--- NOTE | 2018-10-25 18:35 | MB ---
cc: Andrew Bautista DO DATE: 10/25/2018 REASON FOR CONSULTATION: Shortness of breath, elevated troponin. HISTORY OF PRESENT ILLNESS: Lyndon Peñaloza is a pleasant 67-year-old male who sees my partner, Dr. Blancas in the office and presented to [facility] emergency room due to shortness of breath and edema. He states that this has been going on for the past few days to a week. He denies orthopnea, but his explains that he never lies flat to sleep. He sleeps upright in a chair. He has had a cough with the increasing shortness of breath, which causes pain into his neck and shoulders. He denies chest pain, fevers or chills. On arrival to the emergency room, an EKG was done and sent to me by the emergency room physician, which shows ventricular pacing at 120 beats per minute. Overnight, he has had a couple episodes of ventricular pacing at 120-130 beats per minute as well as the atrial and ventricular pacing. In seeing him, he is currently hemodynamically stable with no chest pain and no shortness of breath at rest. He recently underwent a stress test in our office as well as an echocardiogram. Stress test was difficult due to obesity and showed a small partially reversible apical defect with borderline TID. Ischemia was not excluded. Echocardiogram showed normal function with mild valvular disease. He was recommended continued medical therapy. PAST MEDICAL HISTORY: 1. DVT. 2. Diabetes mellitus. 3. Umbilical hernia. 4. Brain tumor. 5. Endocarditis. PAST SURGICAL HISTORY: 1. Aortic valve replacement with a bioprosthetic valve, twice for endocarditis. 2. Medtronic pacemaker placement (patient is pacemaker dependent). 3. Splenectomy. 4. Ankle surgery. ALLERGIES: 1. PHENYTOIN. 2. STATINS. 3. METFORMIN. MEDICATIONS: 1. Crestor 10 mg daily. 2. Glucotrol 5 mg b.i.d. 3. Norvasc 5 mg daily. 4. Metoprolol tartrate 75 mg b.i.d. 5. Hydrochlorothiazide 25 mg daily. 6. Doxycycline 500 mg b.i.d. 7. Potassium 10 mEq daily. 8. Lasix 20 mg daily. 9. Lisinopril 20 mg daily. 10. Aspirin 325 mg daily. FAMILY HISTORY: Denies premature coronary artery disease or sudden cardiac within the family. SOCIAL HISTORY: The patient is a former smoker. He denies tobacco, alcohol or drug abuse. REVIEW OF SYSTEMS: Fourteen systems were reviewed, including osteopathic. Pertinent positives and negatives above, otherwise negative. PHYSICAL EXAMINATION: VITAL SIGNS: Temperature 98.2, heart rate 78, blood pressure 132/63, respirations 22, pulse oximetry 94%. GENERAL: The patient appears well, in no acute distress, alert, awake and oriented x 3. HEENT: Extraocular muscles intact. Mucous membranes moist. NECK: Supple. No JVD at 45 degrees. No carotid bruits heard bilaterally. Carotid upstroke is brisk in nature. HEART: Regular rate and rhythm. Positive first and second heart sounds with no noted murmurs, gallops or rubs. LUNGS: Decreased breath sounds at the bilateral bases, but no overt wheezes, rales or rhonchi. ABDOMEN: Soft, nontender, nondistended. No organomegaly noted. EXTREMITIES: Show 1-2+ pitting edema bilaterally. NEUROLOGIC: No focal deficits. SKIN: Warm, dry and intact. OSTEOPATHIC: Mild lordosis. No kyphoscoliosis or paraspinal tender points. LABORATORY DATA: Hemoglobin 15.5, hematocrit 45.4, platelets 266. Potassium 2.9, BUN 25, creatinine 1.28. Troponin 0.21 decreasing from 0.27. Electrocardiogram (10/24/2018 at 20:44) V-paced at 120 beats per minute. IMPRESSION: 1. Acute diastolic heart failure, possibly due to tachyarrhythmia. 2. Ventricular pacing at 120 beats per minute, possibly due to pacemaker-induced tachycardia. 3. Elevated troponin, which is overall flat most likely due to congestive heart failure. 4. History of bioprosthetic an aortic valve replacement x 2 for endocarditis. 5. Pacemaker dependent. RECOMMENDATIONS: 1. Mr. Peñaloza presented with what appears to be heart failure leading to his shortness of breath and edema. 2. EKG while in the emergency room shows pacing at 120-130 beats per minute. We will have his pacemaker interrogated with concern for pacemaker induced tachycardia. It is a possibility that having his heart rates this high could lead to his overall heart failure. 4. He does have a minimally elevated troponin, which is overall flat, and I do not believe that this is acute coronary syndrome. Recent stress test showed possible mild ischemia with some transient ischemic dilatation, but this was overall a difficult stress test due to obesity. We will continue to evaluate him, but for now, we will plan on continuing medical management as I think once his heart rates are better controlled and fluid was taken off, he will do overall better. 5. We will plan on repeating his echocardiogram to further evaluate his overall left ventricular function, cardiac structure and valvulopathies. There is a possibility that his ejection fraction might be decreased due to his overall tachyarrhythmia secondary to pacemaker-induced tachycardia. 6. Further recommendations will be made based on the hospital course. Thank you for allowing me to see Lyndon Peñaloza. If there are any questions, please do not hesitate to call. DO PATO Gilbert/anthony , 02:20 PM , 02:32 PM
[2018-10-26 02:06] LABS: Baso % (Auto) 0.6 % (0.0-2.0); Eos # (Auto) 0.1 th/mm3 (0.0-0.4); Eos % (Auto) 1.2 % (0.0-4.0); Hemoglobin 15.1 gm/dL (13.0-17.0); Lymph # (Auto) 1.7 th/mm3 (1.0-4.8); Lymph % (Auto) 20.8 % (9.0-44.0); Mean Corpuscular HGB Conc 33.7 % (32.0-36.0); Mean Corpuscular Hemoglobin 27.4 pg (27.0-34.0); Mean Corpuscular Volume 81.5 fL (80.0-100.0); Mono % (Auto) 12.3 % (0.0-8.0); Neut # (Auto) 5.3 th/mm3 (1.8-7.7); Neut % (Auto) 65.1 % (16.0-70.0); Platelet Count 306 th/mm3 (150-450); Red Blood Count 5.52 mil/mm3 (4.50-5.90); Red Cell Distribution Width 15.2 % (11.6-17.2); White Blood Count 8.1 th/mm3 (4.0-11.0)
[2018-10-26 02:25] LABS: Alanine Aminotransferase 42 U/L (12-78); Albumin 2.9 g/dL (3.4-5.0); Anion Gap 7 meq/L (5-15); Aspartate Aminotransferase 37 U/L (15-37); Blood Urea Nitrogen 35 mg/dL (7-18); Calcium 8.7 mg/dL (8.5-10.1); Carbon Dioxide 35.3 meq/L (21.0-32.0); Chloride 96 meq/L (98-107); Glomerular Filtration Rate 54 mL/min (>89); Glucose,Random 231 mg/dL (74-106); Potassium 3.3 meq/L (3.5-5.1); Sodium 138 meq/L (136-145)
[2018-10-26 02:27] LABS: Alkaline Phosphatase 102 U/L (45-117); Total Protein 7.2 g/dL (6.4-8.2)
[2018-10-26] MEDS: Heparin 10,000 UNITS/10 ML Vial (for IV use) IV.PUSH PRN (03:14)
[2018-10-26 08:11] VITALS: RESP 18; TEMP 97.7
[2018-10-26] MEDS: Metoprolol Tartrate 50 MG Tablet PO SCH (08:43)
[2018-10-26] MEDS: Insulin NovoLOG Aspart Correctional Sugar Inj SQ SCH (08:45)
--- NOTE | 2018-10-26 11:30 | P.PN ---
Subjective Interval history: Follow-up acute diastolic heart failure October 26, 2018-patient seen and examined, reports improvement of shortness of breath, denies any chest pain or neck pain. Patient was up and ambulated with PT. Case discussed with cardiology this a.m. Physical Exam Vital signs: Vital Signs 10/25/18 12:00 10/25/18 13:00 10/25/18 14:00 Temperature 97.9 F Pulse Rate 68 68 70 Respiratory Rate 22 Blood Pressure 112/65 Pulse Oximetry 94 L Pulse Oximetry [Exertion on Room Air] Pulse Oximetry [Resting on Room Air] 10/25/18 15:00 10/25/18 16:00 10/25/18 17:00 Temperature 98.4 F Pulse Rate 67 68 68 Respiratory Rate 24 Blood Pressure 112/65 Pulse Oximetry 93 L Pulse Oximetry [Exertion on Room Air] Pulse Oximetry [Resting on Room Air] 10/25/18 18:00 10/25/18 19:00 10/25/18 20:00 Temperature 98.1 F Pulse Rate 76 71 62 Respiratory Rate 24 Blood Pressure 140/78 Pulse Oximetry 95 Pulse Oximetry [Exertion on Room Air] Pulse Oximetry [Resting on Room Air] 10/25/18 21:00 10/25/18 22:00 10/25/18 23:00 Temperature Pulse Rate 75 71 71 Respiratory Rate Blood Pressure Pulse Oximetry Pulse Oximetry [Exertion on Room Air] Pulse Oximetry [Resting on Room Air] 10/25/18 23:43 10/25/18 23:53 10/26/18 01:00 Temperature 98 F Pulse Rate 73 73 74 Respiratory Rate 22 Blood Pressure 113/68 Pulse Oximetry 96 Pulse Oximetry [Exertion on Room Air] Pulse Oximetry [Resting on Room Air] 10/26/18 02:00 10/26/18 03:00 10/26/18 03:50 Temperature 98.1 F Pulse Rate 71 72 70 Respiratory Rate 22 Blood Pressure 128/76 Pulse Oximetry 95 Pulse Oximetry [Exertion on Room Air] Pulse Oximetry [Resting on Room Air] 10/26/18 04:00 10/26/18 05:00 10/26/18 06:00 Temperature Pulse Rate 70 68 74 Respiratory Rate Blood Pressure Pulse Oximetry Pulse Oximetry [Exertion on Room Air] Pulse Oximetry [Resting on Room Air] 10/26/18 07:00 10/26/18 08:00 10/26/18 10:44 Temperature 97.7 F Pulse Rate 83 84 Respiratory Rate 18 Blood Pressure 134/67 Pulse Oximetry 94 L Pulse Oximetry [Exertion on Room Air] 90 L Pulse Oximetry [Resting on Room Air] 94 L Intake & Output 10/25/18 10/26/18 10/26/18 18:59 06:59 18:59 Intake Total 1107 / 1107 480 / 480 Output Total 425 / 425 600 / 600 Balance 682 / 682 -120 / -120 Weight 134.8 kg Intake: IV 405 / 405 Heparin/D5W 25,000 U/250 mL 25, 205 / 205 000 unit In 250 ml @ Per Protocol IV.CONT TITRATE PRN Rx #:[id number] KCl 20 mEq Premix Inj 20 meq In 200 / 200 100 ml @ 50 mls/hr IV.SIG Q2H SHILA Rx#:[id number] Oral 702 / 702 480 / 480 Output: Urine 425 / 425 600 / 600 Other: # Voids 2 Date of Last Bowel Movement 10/25/18 # Bowel Movements 1 0 Narrative: GENERAL: NAD SKIN: Warm and dry. HEAD: Atraumatic. Normocephalic. EYES: Pupils equal and round. No scleral icterus. No injection or drainage. ENT: No nasal bleeding or discharge. Mucous membranes pink and moist. NECK: Trachea midline. No JVD. CARDIOVASCULAR: Regular rate and rhythm. RESPIRATORY: No accessory muscle use. Clear to auscultation. Breath sounds equal bilaterally. GASTROINTESTINAL: Abdomen soft, non-tender, nondistended. Hepatic and splenic margins not palpable. MUSCULOSKELETAL: Extremities without clubbing, cyanosis, or edema. No obvious deformities. NEUROLOGICAL: Awake and alert. No obvious cranial nerve deficits. Motor grossly within normal limits. Five out of 5 muscle strength in the arms and legs. Normal speech. PSYCHIATRIC: Appropriate mood and affect; insight and judgment normal. Results - Labs CBC & Chem 7: 10/26/18 01:44 10/26/18 01:44 Laboratory Results - last 24 hr 10/25/18 10/25/18 10/25/18 06:09 11:57 14:23 WBC RBC Hgb Hct MCV MCH MCHC RDW Plt Count MPV Neut % (Auto) Lymph % (Auto) [place] % (Auto) Eos % (Auto) Baso % (Auto) Neut # (Auto) Lymph # (Auto) [place] # (Auto) Eos # (Auto) Baso # (Auto) WBC Differential Differential Comment APTT Sodium Potassium Chloride Carbon Dioxide Anion Gap BUN Creatinine Estimated GFR POC Glucose 248 H Random Glucose Calcium Total Bilirubin AST ALT Alkaline Phosphatase Total Creatine Kinase 492 H CK-MB (CK-2) 2.3 CK-MB (CK-2) % 0.5 Troponin I 0.08 H B-Natriuretic Peptide 108 H Total Protein Albumin 10/25/18 10/25/18 10/25/18 14:23 17:22 19:50 WBC RBC Hgb Hct MCV MCH MCHC RDW Plt Count MPV Neut % (Auto) Lymph % (Auto) [place] % (Auto) Eos % (Auto) Baso % (Auto) Neut # (Auto) Lymph # (Auto) [place] # (Auto) Eos # (Auto) Baso # (Auto) WBC Differential Differential Comment APTT 36.8 H Sodium Potassium Chloride Carbon Dioxide Anion Gap BUN Creatinine Estimated GFR POC Glucose 193 H 188 H Random Glucose Calcium Total Bilirubin AST ALT Alkaline Phosphatase Total Creatine Kinase CK-MB (CK-2) CK-MB (CK-2) % Troponin I B-Natriuretic Peptide Total Protein Albumin 10/26/18 10/26/18 10/26/18 01:44 01:44 01:44 WBC 8.1 RBC 5.52 Hgb 15.1 Hct 45.0 MCV 81.5 MCH 27.4 MCHC 33.7 RDW 15.2 Plt Count 306 MPV 9.0 Neut % (Auto) 65.1 Lymph % (Auto) 20.8 [place] % (Auto) 12.3 H Eos % (Auto) 1.2 Baso % (Auto) 0.6 Neut # (Auto) 5.3 Lymph # (Auto) 1.7 [place] # (Auto) 1.0 H Eos # (Auto) 0.1 Baso # (Auto) 0.0 WBC Differential . Differential Comment Auto diff final APTT 38.1 H Sodium 138 Potassium 3.3 L Chloride 96 L Carbon Dioxide 35.3 H Anion Gap 7 BUN 35 H Creatinine 1.31 H Estimated GFR 54 L POC Glucose Random Glucose 231 H Calcium 8.7 Total Bilirubin 0.3 AST 37 ALT 42 Alkaline Phosphatase 102 Total Creatine Kinase CK-MB (CK-2) CK-MB (CK-2) % Troponin I B-Natriuretic Peptide Total Protein 7.2 Albumin 2.9 L 10/26/18 10/26/18 08:07 10:20 WBC RBC Hgb Hct MCV MCH MCHC RDW Plt Count MPV Neut % (Auto) Lymph % (Auto) [place] % (Auto) Eos % (Auto) Baso % (Auto) Neut # (Auto) Lymph # (Auto) [place] # (Auto) Eos # (Auto) Baso # (Auto) WBC Differential Differential Comment APTT 41.4 H Sodium Potassium Chloride Carbon Dioxide Anion Gap BUN Creatinine Estimated GFR POC Glucose 219 H Random Glucose Calcium Total Bilirubin AST ALT Alkaline Phosphatase Total Creatine Kinase CK-MB (CK-2) CK-MB (CK-2) % Troponin I B-Natriuretic Peptide Total Protein Albumin - Procedures none Assessment and Plan - Plan 67-year-old man with Acute diastolic heart failure Due to tachyarrhythmia Now improving on Lasix Continue home medication Appreciate input from cardiology Ventricular pacing Due to pacemaker induced tachycardia Now resolved Elevated troponin Due to ACS 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
--- NOTE | 2018-10-26 12:17 | P.PNCA ---
Subjective Interval history: No events overnight No complaints Adamantly denies chest pain Shoulder/neck pain done Up and walking Medications and Allergies Active Medications: Active Medications Acetaminophen (Tylenol) 650 mg PO Q4H PRN PRN Reason: Temp > 100.4 Dextrose (D50w Vial) 50 ml IV.PUSH UNSCH PRN PRN Reason: PER HYPOGLYCEMIA PROTOCOL Dextrose (D50w Vial) 50 ml IV.PUSH UNSCH PRN PRN Reason: PER HYPOGLYCEMIA PROTOCOL Dicloxacillin Sodium (Dynapen) 500 mg PO BID [facility] Last Admin: 10/26/18 08:44 Dose: 500 mg Furosemide (Lasix Inj) 20 mg IV.PUSH BID@0900,1800 [facility] Last Admin: 10/26/18 08:44 Dose: 20 mg Glucagon (Glucagon Inj) 1 mg OTHER PRN PRN PRN Reason: for Hypoglycemia Protocol Glucagon (Glucagon Inj) 1 mg OTHER PRN PRN PRN Reason: for Hypoglycemia Protocol Heparin Sodium (Porcine) (Heparin Inj) 5,000 units IV.PUSH UNSCH PRN PRN Reason: aPTT < 25 Heparin Sodium (Porcine) (Heparin Inj) 2,500 units IV.PUSH UNSCH PRN PRN Reason: aPTT 25-39 Last Admin: 10/26/18 03:14 Dose: 2,500 units Heparin Sodium/Dextrose (Heparin/D5w 25,000 U/250 Ml) 25,000 unit in 250 mls @ 0 mls/hr IV.CONT TITRATE PRN; Protocol PRN Reason: Per Protocol Last Titration: 10/26/18 03:20 Dose: 1,300 units/hr, 13 mls/hr Insulin Aspart (Novolog Insulin Correctional Sugar Inj) 0 unit SQ ACHS [facility]; Protocol Last Admin: 10/26/18 08:45 Dose: 3 unit Metoprolol Tartrate (Lopressor) 75 mg PO BID [facility] Last Admin: 10/26/18 08:43 Dose: 75 mg Ondansetron HCl (Zofran Inj) 4 mg IV.PUSH Q6H PRN PRN Reason: NAUSEA OR VOMITING Sodium Chloride (Ns Flush) 2 ml IV.FLUSH PRN PRN PRN Reason: FLUSH AFTER USING IV ACCESS Sodium Chloride (Ns Flush) 2 ml IV.FLUSH BID [facility] Last Admin: 10/25/18 20:30 Dose: 2 ml Allergies Allergy/AdvReac Type Severity Reaction Status Date / Time phenytoin Allergy Severe Rash Verified 10/25/18 01:39 [id number] Reductase Allergy Severe "raises Verified 10/25/18 01:39 Inhibitor kidney function" atorvastatin [From Lipitor] Allergy Rash Verified 10/25/18 03:01 metformin AdvReac Severe abdominal Verified 10/25/18 01:39 pain Home Medications Medication Instructions Recorded Confirmed Type amlodipine 5 mg PO DAILY 10/24/18 10/25/18 History aspirin 325 mg PO DAILY 10/24/18 10/25/18 History dicloxacillin 500 mg PO BID 10/24/18 10/25/18 History furosemide [Lasix] 20 mg PO DAILY 10/24/18 10/25/18 History glipizide [Glucotrol] 5 mg PO BID 10/24/18 10/25/18 History hydrochlorothiazide 25 mg PO DAILY 10/24/18 10/25/18 History lisinopril 20 mg PO DAILY 10/24/18 10/25/18 History metoprolol tartrate 75 mg PO BID 10/24/18 10/25/18 History potassium chloride 10 meq PO DAILY 10/24/18 10/25/18 History rosuvastatin [Crestor] 10 mg PO DAILY 10/24/18 10/25/18 History Physical Exam Vital signs: Vital Signs 10/25/18 13:00 10/25/18 14:00 10/25/18 15:00 Temperature Pulse Rate 68 70 67 Respiratory Rate Blood Pressure Pulse Oximetry Pulse Oximetry [Exertion on Room Air] Pulse Oximetry [Resting on Room Air] 10/25/18 16:00 10/25/18 17:00 10/25/18 18:00 Temperature 98.4 F Pulse Rate 68 68 76 Respiratory Rate 24 Blood Pressure 112/65 Pulse Oximetry 93 L Pulse Oximetry [Exertion on Room Air] Pulse Oximetry [Resting on Room Air] 10/25/18 19:00 10/25/18 20:00 10/25/18 21:00 Temperature 98.1 F Pulse Rate 71 62 75 Respiratory Rate 24 Blood Pressure 140/78 Pulse Oximetry 95 Pulse Oximetry [Exertion on Room Air] Pulse Oximetry [Resting on Room Air] 10/25/18 22:00 10/25/18 23:00 10/25/18 23:43 Temperature 98 F Pulse Rate 71 71 73 Respiratory Rate 22 Blood Pressure 113/68 Pulse Oximetry 96 Pulse Oximetry [Exertion on Room Air] Pulse Oximetry [Resting on Room Air] 10/25/18 23:53 10/26/18 01:00 10/26/18 02:00 Temperature Pulse Rate 73 74 71 Respiratory Rate Blood Pressure Pulse Oximetry Pulse Oximetry [Exertion on Room Air] Pulse Oximetry [Resting on Room Air] 10/26/18 03:00 10/26/18 03:50 10/26/18 04:00 Temperature 98.1 F Pulse Rate 72 70 70 Respiratory Rate 22 Blood Pressure 128/76 Pulse Oximetry 95 Pulse Oximetry [Exertion on Room Air] Pulse Oximetry [Resting on Room Air] 10/26/18 05:00 10/26/18 06:00 10/26/18 07:00 Temperature Pulse Rate 68 74 83 Respiratory Rate Blood Pressure Pulse Oximetry Pulse Oximetry [Exertion on Room Air] Pulse Oximetry [Resting on Room Air] 10/26/18 08:00 10/26/18 10:44 Temperature 97.7 F Pulse Rate 84 Respiratory Rate 18 Blood Pressure 134/67 Pulse Oximetry 94 L Pulse Oximetry [Exertion on Room Air] 90 L Pulse Oximetry [Resting on Room Air] 94 L Intake & Output 10/25/18 10/26/18 10/26/18 18:59 06:59 18:59 Intake Total 1107 / 1107 480 / 480 Output Total 425 / 425 600 / 600 Balance 682 / 682 -120 / -120 Weight 134.8 kg Intake: IV 405 / 405 Heparin/D5W 25,000 U/250 mL 25, 205 / 205 000 unit In 250 ml @ Per Protocol IV.CONT TITRATE PRN Rx #:[id number] KCl 20 mEq Premix Inj 20 meq In 200 / 200 100 ml @ 50 mls/hr IV.SIG Q2H SHILA Rx#:[id number] Oral 702 / 702 480 / 480 Output: Urine 425 / 425 600 / 600 Other: # Voids 2 Date of Last Bowel Movement 10/25/18 # Bowel Movements 1 0 Narrative: GENERAL: NAD SKIN: Warm and dry. HEAD: Atraumatic. Normocephalic. EYES: Pupils equal and round. No scleral icterus. No injection or drainage. ENT: No nasal bleeding or discharge. Mucous membranes pink and moist. NECK: Trachea midline. No JVD. CARDIOVASCULAR: Regular rate and rhythm. RESPIRATORY: No accessory muscle use. Clear to auscultation. Breath sounds equal bilaterally. GASTROINTESTINAL: Abdomen soft, non-tender, nondistended. Hepatic and splenic margins not palpable. MUSCULOSKELETAL: Extremities without clubbing, cyanosis, or edema. No obvious deformities. NEUROLOGICAL: Awake and alert. No obvious cranial nerve deficits. Motor grossly within normal limits. Five out of 5 muscle strength in the arms and legs. Normal speech. PSYCHIATRIC: Appropriate mood and affect; insight and judgment normal. Results 10/26/18 01:44 10/26/18 01:44 Cardiac Enzymes 10/25/18 10/25/18 10/25/18 Range/Units 06:09 06:09 14:23 AST (15-37) U/L CK-MB (CK-2) 3.2 2.3 (0.5-3.6) ng/mL Troponin I 0.21 H 0.08 H (0.02-0.05) ng/mL B-Natriuretic Peptide 108 H (0-100) pg/mL 10/26/18 Range/Units 01:44 AST 37 (15-37) U/L CK-MB (CK-2) (0.5-3.6) ng/mL Troponin I (0.02-0.05) ng/mL B-Natriuretic Peptide (0-100) pg/mL Coagulation 10/25/18 10/25/18 10/25/18 Range/Units 06:09 06:09 14:23 APTT 39.5 H D 36.8 H (23.4-31.7) sec B-Natriuretic Peptide 108 H (0-100) pg/mL 10/26/18 10/26/18 Range/Units 01:44 10:20 APTT 38.1 H 41.4 H (23.4-31.7) sec B-Natriuretic Peptide (0-100) pg/mL CBC 10/25/18 10/26/18 Range/Units 06:09 01:44 WBC 8.8 8.1 (4.0-11.0) th/mm3 RBC 5.52 5.52 (4.50-5.90) mil/mm3 Hgb 15.5 15.1 (13.0-17.0) gm/dL Hct 45.4 45.0 (39.0-51.0) % Plt Count 266 306 (150-450) th/mm3 Neut # (Auto) 6.4 5.3 (1.8-7.7) th/mm3 Lymph # (Auto) 1.4 1.7 (1.0-4.8) th/mm3 [place] # (Auto) 1.0 H 1.0 H (0.0-0.9) th/mm3 Eos # (Auto) 0.0 0.1 (0.0-0.4) th/mm3 Baso # (Auto) 0.1 0.0 (0.0-0.2) th/mm3 Comprehensive Metabolic Panel 10/25/18 10/26/18 Range/Units 06:09 01:44 Sodium 136 138 (136-145) meq/L Potassium 2.9 L* D 3.3 L (3.5-5.1) meq/L Chloride 95 L 96 L (98-107) meq/L Carbon Dioxide 28.9 35.3 H (21.0-32.0) meq/L BUN 25 H 35 H (7-18) mg/dL Creatinine 1.28 1.31 H (0.60-1.30) mg/dL Calcium 8.6 8.7 (8.5-10.1) mg/dL AST 37 (15-37) U/L ALT 42 (12-78) U/L Alkaline Phosphatase 102 (45-117) U/L Total Protein 7.2 (6.4-8.2) g/dL Albumin 2.9 L (3.4-5.0) g/dL Intake and Output 10/25/18 10/26/18 10/26/18 22:59 06:59 14:59 Intake Total 907 / 907 480 / 480 Output Total 425 / 425 600 / 600 Balance 482 / 482 -120 / -120 Intake: IV / Heparin/D5W 25,000 U/250 mL 25, / 205 000 unit In 250 ml @ Per Protocol IV.CONT TITRATE PRN Rx #:[id number] Oral 702 / 702 480 / 480 Output: Urine 425 / 425 600 / 600 Other: # Voids 2 Date of Last Bowel Movement 10/25/18 # Bowel Movements 1 0 Weight 134.8 kg Assessment and Plan - Assessment (1) PMT (pacemaker-mediated tachycardia) Code(s): I49.9 - Cardiac arrhythmia, unspecified Status: Acute (2) Elevated troponin Code(s): R74.8 - Abnormal levels of other serum enzymes Status: Acute (3) SOB (shortness of breath) Code(s): R06.02 - Shortness of breath Status: Acute - Plan 1. Acute diastolic heart failure, possibly due to tachyarrhythmia. 2. Ventricular pacing at 120 beats per minute, due to pacemaker-induced tachycardia. PVAR extended, no further events 3. Elevated troponin, which is overall flat most likely due to congestive heart failure. Recent stress test with some concern for ischemia and questionable TID No anginal symptoms Will have him follow up with Dr. Blancas and if further symptoms then will consider cardiac catheterization 4. History of bioprosthetic an aortic valve replacement x 2 for endocarditis. 5. Pacemaker dependent. 6. Cardiovascularly stable for discharge
[2018-10-26 12:25] VITALS: BP 114/62; O2SAT 89
[2018-10-26 13:14] VITALS: PULSE 66
== END 2018-10-26 13:40 | disposition home or self-care (01) ==
LOC: NEDDLT 20:14 → HCIS 10-25 01:15
PROVIDERS: ADMIT Hospitalist; ATTEND Hospitalist